=== PATIENT | female | born 1955 | race Caucasian/White ===

== ENCOUNTER 2017-07-24 11:43 | Inpatient (IN) | payer SELFPAY ==
[2017-07-24] MEDS ORDERED: NS 1,000 ML IV ONE ×2 (14:07→15:37)
--- NOTE | 2017-07-24 14:09 | EDPHY ---
H & P Stated Complaint: choly 3 wks ago/unable to eat/seen [facility] mrcp showed stricture at biliary du Time Seen by Provider: 07/24/17 13:31 HPI/ROS: CHIEF COMPLAINT: Persistent nausea HISTORY OF PRESENT ILLNESS: This is a 61-year-old female who underwent laparoscopic cholecystectomy at [facility] on June 29. Her surgeon was Dr. Joey Gardiner. She saw him in follow-up approximately 2 weeks later. During that postoperative time she had been experiencing bouts of extreme nausea with vomiting. Her nausea was not related to the type of food that she ate. This nausea and vomiting has continued and she is finding it difficult to adequately nourished herself. This past week, 5 nights ago, she was up all night (Thursday night) with nausea and vomiting. She spoke with her surgeon the following morning and was subsequently seen at [facility] Emergency Department where an MRCP was performed. She was told that this study was normal and was discharged from the emergency department. She saw her primary care physician, Dr. Juan Emanuel, 2 days ago. She was advised to revise her diet so that she was eating bland foods, increase her water intake, and was prescribed an antacid that she has not yet taken. Her symptoms have persisted. She spoke with her surgeon's office today and was told that the MRCP was not normal. As a result she presents to [facility] Emergency [facility] for further evaluation. She has been losing weight over the past month and has been unable to work regularly. She has not had fever. She has not seen blood in her vomitus. No constipation or diarrhea and no blood in her stool. No urinary complaints. REVIEW OF SYSTEMS: A ten point review of systems was performed and is negative with the exception of the items mentioned in the HPI. Past medical history: Hypertension Past surgical history: 1. Laparoscopic cholecystectomy 2. section 3. 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 She rarely drinks alcohol. She does not use tobacco products. No illicit drug use. General Appearance: Alert. Vital signs reviewed. Initial heart rate 120 with a blood pressure of 147/92. Temperature 36.6 degrees. Eyes: Pupils equal and round, no conjunctival injection, no discharge. Anicteric. ENT, Mouth: Mucous membranes are slightly dry, no oropharyngeal erythema or edema. Neck: No lymphadenopathy, supple. Respiratory: Lungs are clear to auscultation; no wheezes, rales, or rhonchi. Cardiovascular: Regular rate and rhythm; no murmur, rub, or gallop. Gastrointestinal: Abdomen is soft with mild tenderness in the right upper quadrant but no guarding or rebound, no masses or organomegaly, bowel sounds normal. Surgical incisions are healing well. Skin: Warm and dry, no rashes on exposed skin, normal color. Back: Nontender to palpation over the thoracolumbar spine. No CVAT. Extremities: No lower extremity edema, no calf tenderness or swelling. Neurological: Alert and oriented. Moving all four extremities easily and equally. Psychiatric: Normal affect. - Personal History Current Tetanus/Diphtheria Vaccine: Yes - Medical/Surgical History Hx Asthma: No Hx Chronic Respiratory Disease: No Hx Diabetes: No Hx Cardiac Disease: No Hx Renal Disease: No Hx Cirrhosis: No Hx Alcoholism: No Hx HIV/AIDS: No Hx Splenectomy or Spleen Trauma: No Other PMH: choly - Social History Smoking Status: Never smoked Constitutional: Initial Vital Signs Temperature (C) 36.6 C 07/24/17 11:58 Heart Rate 120 H 07/24/17 11:58 Respiratory Rate 20 07/24/17 11:58 Blood Pressure 147/92 H 07/24/17 11:58 O2 Sat (%) 96 07/24/17 11:58 O2 Delivery Mode Room Air Allergies/Adverse Reactions: No Known Allergies Allergy (Verified 07/24/17 11:57) Home Medications: Medication Instructions Recorded Lisinopril/Hctz 20/12.5MG 1 ea PO DAILY 07/24/17 [Zestoretic/Prinzide 20/12.5MG (*)] Omeprazole 40 mg PO DAILY 07/24/17 Promethazine HCl [Phenergan 25mg 25 mg PO Q6 PRN 07/24/17 (*)] Medical Decision Making ED Course/Re-evaluation: 61-year-old female 1 month status post laparoscopic cholecystectomy with persistent nausea and vomiting. She has been undergone MRCP. I was able to review the written report of this study. It shows a common bile duct measuring 12 mm, no choledocholithiasis or obstructing mass. I think that the size of this common bile duct is not unexpected postoperatively. There is noted to be a fairly abrupt transition distally near the ampulla. This is thought to possibly represent a short segment stricture. She received 2 L of normal saline intravenously in the emergency department. She was initially tachycardic but this resolved after the administration of IV fluids. She has been using Phenergan at home for nausea. She did not have vomiting while under my care. I reviewed her laboratory studies. Liver functions, with the exception of a bilirubin of 2 (unconjugated 1.6), are normal and her lipase is also normal. I do not suspect bowel obstruction in this setting. She has been having bowel movements. She is not febrile and does not have an elevated white blood cell count an infection seems unlikely. There is currently no evidence of retained stone. At the time of her cholecystectomy she presented with right upper quadrant pain and nausea and vomiting. I have not seen an intra operative note but I do have a report of an intraoperative cholangiogram which showed "opacification of the common bile duct, the common hepatic duct and the central biliary tree. Ducts appeared diffusely dilated. There is tapering and an apparent short segment narrowing of the distal common bile duct. No discrete filling defect. There is spillage of contrast into the duodenum. Narrowing of the distal common bile duct may account for the more proximal dilatation. Correlate clinically. ERCP me BP of benefit for further evaluation and possible treatment." I spoke with Dr. Mckinnon, gastroenterology. Dr. Lomax will see this patient tomorrow. I also spoke with Dr. Gardiner, her surgeon. He reports that there might be a stricture in the pancreatic head from chronic pancreatitis. He questions whether sphincterotomy and temporary bile duct stenting might be needed, but does not feel that there is a surgical need at this point. He agrees with gastroenterology consultation. She is being admitted for further evaluation and treatment as warranted. - Data Points Laboratory Results: Laboratory Results 07/24/17 14:21 07/24/17 14:21 Medications Given: Hydromorphone HCl (Dilaudid) 0.2 - 0.4 mg IVP Q4HRS PRN PRN Reason: Pain, Severe Unable to Take PO Stop: 08/03/17 16:05 Last Admin: 07/25/17 01:02 Dose: 0.4 mg Sodium Chloride (Ns) 1,000 mls @ 100 mls/hr IV CONT MATT Stop: 01/20/18 16:14 Last Admin: 07/25/17 07:02 Dose: 1,000 mls Ondansetron HCl (Zofran) 4 mg IVP Q4HRS PRN PRN Reason: Nausea/Vomiting, Can't Take PO Stop: 01/20/18 16:05 Last Admin: 07/25/17 01:03 Dose: 4 mg Pantoprazole Sodium (Protonix) 40 mg IVP BID MATT Stop: 01/20/18 23:14 Last Admin: 07/25/17 01:02 Dose: 40 mg Promethazine HCl (Phenergan) 6.25 - 12.5 mg IVP Q6HRS PRN PRN Reason: Nausea/Vomiting, Use 2nd Stop: 01/20/18 16:05 Last Admin: 07/24/17 21:40 Dose: 6.25 mg Discontinued Medications Heparin Sodium (Porcine) (Heparin Sodium) 5,000 unit SC ONCE ONE Stop: 07/24/17 16:09 Last Admin: 07/24/17 17:42 Dose: Not Given Heparin Sodium (Porcine) (Heparin Sc Injection) 5,000 unit SC ONCE ONE Stop: 07/24/17 17:01 Last Admin: 07/24/17 18:44 Dose: Not Given Sodium Chloride (Ns) 1,000 mls @ 0 mls/hr IV EDNOW ONE; Wide Open PRN Reason: Protocol Stop: 07/24/17 14:08 Last Admin: 07/24/17 14:20 Dose: 1,000 mls Sodium Chloride (Ns) 1,000 mls @ 0 mls/hr IV ONCE ONE PRN Reason: Wide Open Stop: 07/24/17 15:38 Last Admin: 07/24/17 15:42 Dose: 1,000 mls Departure - Departure Disposition: [facility] Inpatient Acute Clinical Impression: Abdominal pain Qualifiers: Abdominal location: right upper quadrant Qualified Code(s): R10.11 - Right upper quadrant pain Vomiting Qualifiers: Vomiting type: unspecified Vomiting Intractability: non-intractable Nausea presence: with nausea Qualified Code(s): R11.2 - Nausea with vomiting, unspecified Condition: Good
[2017-07-24 14:33] LABS: PLATELET COUNT 278 10^3/uL (150-400)
[2017-07-24] MEDS ORDERED: ACETAMINOPHEN 325 MG TAB PO PRN (16:06)
[2017-07-24] MEDS ORDERED: PROMETHAZINE HCL 25 MG/ML INJ IVP PRN (16:06)
[2017-07-24] MEDS ORDERED: ONDANSETRON DISINTEGRATING 4 MG TAB PO PRN (16:06)
[2017-07-24] MEDS ORDERED: HEPARIN 20,000 UNIT/ML VIAL SC ONE (16:08)
[2017-07-24] MEDS ORDERED: HEPARIN 5,000 UNIT/0.5 ML INJ SC ONE (17:00)
[2017-07-24] MEDS: ONDANSETRON 4 MG/2 ML VIAL IVP PRN (18:07)
[2017-07-24] MEDS: NS 1,000 ML IV SCH (20:10)
[2017-07-24] MEDS: HYDROmorphONE/DILAUDID 1 MG/ML INJ IVP PRN (20:30)
--- NOTE | 2017-07-24 22:49 | PDGENHP ---
History and Physical History and Physical: CC: Abdominal pain vomiting HISTORY: This patient had never had any abdominal symptoms or problems of concern until about 5 weeks ago when she started having right upper quadrant pain which she describes as severe and burning in nature associated with nausea vomiting. Eventually she was evaluated the [facility] in [place] where she was diagnosed with gallbladder disease and she went to the operating room. What she describes is having been found to have a single very large gallstone and a fairly sick sending gallbladder that was perhaps not intact, but no evidence of infection or sepsis per se. This surgery was done approximately 4 weeks ago. Since then the patient has had ongoing and worsening trouble with a lot of nausea vomiting and dry heaves, keeping very little down and losing a fair bit of weight. She does have some right upper quadrant pain but the more bothersom symptom is nause vomiting and inability to keep anything down. She eventually did follow up at the [facility] again where she had an MRI scan while she was in the ER, though she was not seen by her surgeon in follow-up. I reviewed the report from the scan which shows as expected some mild biliary ductal dilation however there is a question of a possible distal ductal narrowing though the radiologist did not some very committal about this finding. It sounds like the patient's surgeon was not recommending anything else specific be done and the patient had been discharged from the ER. She now comes to this hospital seeking further assessment and 2nd opinion essentially. She denies any specific fevers that she is aware of. She has had some bowel movements that are intermittently normal in loose since her surgery. There has been no blood in her emesis or coffee-ground type material. There are no respiratory or chest symptoms, no urinary symptoms, no joint or skin symptoms. The patient has no prior history of digestive illnesses. Her only abdominal issues have been a many years ago, and then and endometrial ablation procedure for some bleeding. She has no family history of any significant abdominal or digestive illnesses. She is not a significant drinker of alcohol. She does not have any type of chronic pain issues does not take any chronic pain medications. 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 Couple days ago she was given a prescriptions for some Prilosec but she has not started using that yet PHYSICAL EXAMINATION: Vital Signs: So far here she has had some mild intermittent hypertension when her pain or nausea or are uncontrolled, otherwise normal vitals no fever Phlebotomy Services Technician: Examination: General: This very pleasant woman especially considering all of her symptoms, who is alert, oriented, good mentation Skin: warm, dry, good color, no rash, no jaundice HEENT: normal Neck: no mass or jvd Resps: relaxed Lungs: clear breath sounds Heart: regular, no murmur Abdomen: soft, nondistended, with mild diffuse tenderness worst in the right upper quadrant, but no rebound or guarding, +BS, no mass Upper Extremities: normal Lower Extremities: no edema, warm No Bleeding or bruising Neurologic: normal speech/language, normal photograph retoucher, no focal weakness IV site: looks normal LABORATORY DATA: The main finding a CBC is a mildly elevated MCV at 102 associated with mildly low RBC count 3.97 but no abnormalities of hemoglobin or hematocrit On chemistry she has a normal lipase, normal liver enzyme, bilirubin slightly elevated at 2, otherwise unremarkable Chem panel RADIOLOGY STUDIES: No studies done here so far I did again review the report from her MRCP from earlier the this week in [place] with no definitive findings but a question of possible distal ductal narrowing ASSESSMENT: # PERSISTENT NAUSEA VOMITING AND ABDOMINAL PAIN 1 MONTH AFTER CHOLECYSTECTOMY * The cause of this is uncertain, however with all of her unremarkable laboratory data in the same symptoms still present that she had before surgery, I am wondering if the gallbladder was really the cause of her symptoms. Given her description of the size for stone and what sounded like an extremely friable the perhaps even disintegrating gallbladder, I would expected to have been symptomatic. Notably this description of the stone and the gallbladder are given to me directly from the patient and , I have not yet seen pathology report and have not spoken to the surgeon or seen a surgery note. It will help to review such information however. I would consider the possibility of ulcer disease or some other cause of these symptoms. Her examination is not very suggestive of an obstruction but would wonder about the possibility of a partial obstruction or gastric outlet obstruction. The MRI finding of a questionable distal biliary ductal obstruction should be reviewed if we can possibly get a disc from the other hospital. It did not sound very pronounced on the MR and with normal labs I would be somewhat surprised if this where the callus of her symptoms but again I am working with incomplete information here. # weight loss and dehydration due to above # macrocytosis with a slightly these red blood cell count * Broad differential diagnosis but at least as a starting point vitamin B12 should be checked PLANS: -inpatient admission for ongoing assessment and management of the above -IV hydration -pain and nausea medicines as needed -gastroenterology consultation is ordered -I will order abdominal x-rays to make sure there is nothing that looks like gastric or bowel obstruction; may need to consider CT of the abdomen or upper endoscopy for further assessment -will begin proton pump inhibitor therapy now in case this is peptic -check B12 level and disoriented over time if further assessment needed for her macrocytosis -I requested further records from the [facility] I have reviewed the patient's case in detail with Dr. Patience Best I have reviewed the patient's past medical records as part of this assessment, including radiologist report from her MRCP from the [facility] earlier this week
[2017-07-25] MEDS: HYDROmorphONE/DILAUDID 1 MG/ML INJ IVP PRN ×2 (01:02→08:05)
[2017-07-25] MEDS: PANTOPRAZOLE SODIUM 40 MG VIAL IVP SCH ×2 (01:02→08:05)
[2017-07-25] MEDS: ONDANSETRON 4 MG/2 ML VIAL IVP PRN (01:03)
--- NOTE | 2017-07-25 01:23 | PDMN ---
Medical Necessity Medical necessity: C/M review: Patient meets INPT criteria under MCG M-370 Vomiting, M-05 Abdominal pain, undiagnosed: Acute and persistent nausea, vomiting, abdominal pain for one month S/P cholecystectomy of unclear etiology, weight loss and dehydration due to above, total bilirubin 2.0, requiring planned GI consult, ongoing NPO, IV NS 100 ml//hr., frequent doses IV Dilaudid, IV Zofran, IV Phenergan, comorbid gallstone and laparoscopic cholecystectomy 4 weeks ago, subsequent ED visit at [facility] for symptoms above, MRI scan shows some mild expected biliary ductal dilation however there is a question of a possible distal ductal narrowing thought he radiologist did not seem very committal about this finding, it sounds like the patient's surgeon was not recommending anything else be done and patient had been discharged form that ER prior to this admission. MD anticipates > 2 MN LOS for ongoing med nec for eval and TX of above.
[2017-07-25] MEDS: NS 1,000 ML IV SCH (07:02)
[2017-07-25] MEDS ORDERED: LIDOCAINE 2% VISCOUS 15 ML UDCUP PO ONE (10:11)
[2017-07-25] MEDS ORDERED: HYOSCYAMINE SULFATE 0.125 MG TAB PO ONE (10:11)
[2017-07-25] MEDS ORDERED: MAG HYDROX/AL HYDROX/SIMETH 30 ML UDCUP PO ONE (10:11)
--- NOTE | 2017-07-25 10:50 | ASMTCMCOM ---
CM Note CM Note Notes: Spoke w/RN, pt suffers from chronic abd pain. 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 Anticipate pt will dc home w/support of when medically stable, no therapies ordered. DC Plan: Independent Date Signed: 07/25/2017 10:49 AM Electronically Signed By:Deirdre Glass RN
[2017-07-25 11:54] VITALS: BP 148/77
--- NOTE | 2017-07-25 14:02 | HOSPPROG ---
Hospitalist Progress Note Assessment/Plan: #Abdominal pain/nausea: unclear etiology. Choley 4 weeks ago. Localized to epigastrium, so consider ulcer, GERD. Improved with GI cocktail -AXR negative for obstruction. -appreciate GI consult. Rec PPI, hycosamine. Can FU outpatient if not improved -H pylori pending #HTN: controlled here Subjective: nausea mild this morning. Epigatric pain Objective: Vital Signs Temp Pulse Resp BP Pulse Ox 36.6 C 57 L 16 148/77 H 98 07/25/17 11:53 07/25/17 11:53 07/25/17 11:53 07/25/17 11:53 07/25/17 11:53 07/24/17 07/25/17 07/26/17 05:59 05:59 05:59 Intake Total 1999 Balance 1999 - Physical Exam Constitutional: no apparent distress Eyes: PERRL Ears, Nose, Mouth, Throat: moist mucous membranes Cardiovascular: regular rate and rhythym Respiratory: no respiratory distress Gastrointestinal: normoactive bowel sounds, tenderness (mild in epigastric region) Genitourinary: no bladder fullness Skin: warm Musculoskeletal: full muscle strength Neurologic: AAOx3 ICD10 Worksheet Patient Problems: Problems Problem Status Onset Abdominal pain Acute Vomiting Acute
[2017-07-25] MEDS ORDERED: HYOSCYAMINE SULFATE 0.125 MG TAB PO PRN (14:05)
--- NOTE | 2017-07-25 14:43 | GCON ---
[f rep st] CONSULTATION DATE OF CONSULTATION: 07/25/2017 REFERRING PHYSICIAN: MD Fawad CHIEF COMPLAINT: Nausea. HPI: I am asked to see this patient in consultation by Dr. Celestin for a chief complaint of nausea and vomiting. The patient is a 61-year-old, who underwent a cholecystectomy 4 weeks ago at an outside hospital. At that time, she was having issues with nausea, vomiting, and abdominal pain. After surgery, her nausea and vomiting persisted. She was seen in the emergency room there. An MRCP was done. Reports were no definitive stone. She was at home but had continued issues with nausea, vomiting, and poor p.o. intake. She has had some reflux symptoms only recently but no dysphagia. She has had no blood in her stools or melena. Initially did have some diarrhea. She does take occasional Motrin. No prior history of peptic ulcer disease. ALLERGIES: The patient has no reported allergies. MEDICATIONS: Include Tylenol, Dilaudid, Levsin, Zofran, Phenergan. Home medications were Phenergan, omeprazole, hydrochlorothiazide. PAST MEDICAL HISTORY: Notable for gallstone, laparoscopy for cholecystectomy 4 weeks ago, , endometrial ablation, hypertension. SOCIAL HISTORY: She is . Denies alcohol use. FAMILY HISTORY: Negative for colon cancer. REVIEW OF SYSTEMS: A complete review of systems is negative except for the pertinent positives and negatives noted above in the HPI. PHYSICAL EXAM: VITAL SIGNS: The patient is afebrile at 36.6. BP 148/77, pulse 97. CONSTITUTIONAL: She is alert and oriented. EYES: No scleral icterus. HENT: No oral lesions. CARDIOVASCULAR: Regular rhythm. CHEST: Clear to auscultation. ABDOMEN: Positive bowel sounds. Well-healed laparoscopic scar. Soft, nontender. SKIN: No rashes. LABORATORY DATA: LFTs are normal with the exception of mildly elevated bilirubin at 2.0, which is mostly unconjugated. Alkaline phosphatase normal. Lipase normal at 227. Hematocrit normal at 40. KUB shows no evidence of ileus or obstruction. ASSESSMENT: Persistent nausea and vomiting with recent cholecystectomy, although the patient did have some nausea and vomiting prior to her surgery as well. Of note, patient received a gastrointestinal cocktail while here in the hospital, along with some hyoscyamine and has had significant improvement in her symptoms, the best that she has felt in weeks. This may suggest that she has gastritis or potentially peptic ulcer disease; however, she has no red flag symptoms that would warrant urgent upper endoscopy. At this point, I would recommend conservative measures and to treat her gastritis with at least 8 weeks of proton pump inhibitor, to use hyoscyamine as needed, and to avoid nonsteroidal anti-inflammatory drugs. PLAN: 1. Treatment as above. 2. If the patient's symptoms do not continue to improve, she is to contact our office, and we can arrange for an outpatient upper endoscopy. Okay to discharge from gastrointestinal standpoint. 3. Check h. pylori serology. Thank you for this consult. /[id number]/MODL MTDD
--- NOTE | 2017-07-25 19:33 | GDS ---
[f rep st] DISCHARGE SUMMARY DISCHARGE DIAGNOSES: 1. Abdominal pain, suspected peptic ulcer disease versus gastritis. 2. Recent cholecystectomy. 3. Hypertension. HISTORY OF PRESENT ILLNESS: A 61-year-old female with history of hypertension, recently hospitalized for a cholecystectomy. This was done 4 weeks ago and since that time, she has had ongoing progressive nausea and epigastric pain. She has been able to keep very little down and has lost weight. She has mild right upper quadrant pain, but she is more concerned with her nausea. Denies any fevers, chills, or sweats. No bloody stools or emesis. HOSPITAL COURSE BY PROBLEM: 1. Acute abdominal pain: suspect PUD vs gastritis .Improved with GI cocktail. H pylori was negative. X-ray did not show any evidence of obstruction or ileus. No flag signs. Was evaluated by Dr. Richmond with GI who recommends PPI x 8 weeks.Try hycosamine and carafate. If symptoms not improved, provided number for GI follow up. 2. Hypertension. Resume home medications. DISPOSITION: Patient is stable for discharge. NEW MEDICATIONS: Hyoscyamine, Carafate. Continue proton pump inhibitor. She should avoid NSAIDs. FOLLOW UP: 1. Primary care physician. 2. Follow up with Dr. Richmond if abdominal symptoms not improved. /[id number]/MODL MTDD
== END 2017-07-25 15:35 | disposition home or self-care (01) | DRG 384 ==
LOC: OBSVTOIN 16:07 → F3E 17:53
PROVIDERS: ADMIT Internal Medicine; ATTEND Internal Medicine
DX: K27.9 Peptic ulcer, site unspecified, unspecified as acute or chronic, without hemorrhage or perforation (principal); K29.70 Gastritis, unspecified, without bleeding; E86.0 Dehydration; I10 Essential (primary) hypertension; R63.4 Abnormal weight loss; Z98.890 Other specified postprocedural states
CPT/HCPCS: J1170; J1644; J2405; J2550

== ENCOUNTER 2017-09-28 16:02 | Inpatient (IN) | payer OTHER ==
--- NOTE | 2017-09-28 16:11 | EDPHY ---
H & P Stated Complaint: dizzyness/abnormal ekg not eating hypotensive Time Seen by Provider: 09/28/17 16:11 HPI/ROS: CHIEF COMPLAINT: Nausea, vomiting, abdominal pain, dizziness HISTORY OF PRESENT ILLNESS: The patient is referred to the ED by her primary care provider for evaluation of multiple complaints. The patient has had a longstanding history of intermittent abdominal pain, nausea and vomiting. This was initially thought to be secondary to cholelithiasis and the patient did undergo cholecystectomy. She developed ongoing symptoms and was hospitalized and treated presumptively for peptic ulcer disease. She continues to be on a proton pump inhibitor for this condition. The patient reported she had some improvement of her symptoms since the end of June however on of last week developed recurrent symptoms of dyspepsia, dizziness and dyspnea. The patient was seen in her primary care provider's office and reportedly was hypotensive. She was referred to the ED for further evaluation. The patient endorses no symptoms of chest pain. She denies any asymmetric calf pain or swelling. The patient is on lisinopril for hypertension. She has no history of coronary artery disease. REVIEW OF SYSTEMS: A comprehensive 10 point review of systems is otherwise negative aside from elements mentioned in the history of present illness. Source: Patient Exam Limitations: No limitations - Personal History Current Tetanus Diphtheria and Acellular Pertussis (TDAP): Yes - Medical/Surgical History Hx Asthma: No Hx Chronic Respiratory Disease: No Hx Diabetes: No Hx Cardiac Disease: No Hx Renal Disease: No Hx Cirrhosis: No Hx Alcoholism: No Hx HIV/AIDS: No Hx Splenectomy or Spleen Trauma: No Other PMH: Hypertension, cholecystectomy - Social History Smoking Status: Never smoked - Physical Exam Exam: General Appearance: Alert, no distress Eyes: Pupils equal and round no pallor or injection ENT, Mouth: Mucous membranes moist Respiratory: There are no retractions, lungs are clear to auscultation Cardiovascular: Regular rate and rhythm Gastrointestinal: Abdomen is soft and nontender, no masses, bowel sounds normal Neurological: A&O, normal motor function, normal sensory exam, normal cranial nerves Skin: Warm and dry, no rashes Musculoskeletal: Neck is supple nontender Extremities: symmetrical, full range of motion Psychiatric: Patient is oriented X 3, there is no agitation Constitutional: Initial Vital Signs Temperature (C) 36.5 C 09/28/17 16:05 Heart Rate 90 07/30/18 16:05 Respiratory Rate 17 09/28/17 16:05 Blood Pressure 99/73 L 09/28/17 16:05 O2 Sat (%) 96 09/28/17 16:05 O2 Delivery Mode Room Air Allergies/Adverse Reactions: No Known Allergies Allergy (Verified 09/28/17 16:04) Home Medications: Medication Instructions Recorded Lisinopril/Hctz 20/12.5MG 1 ea PO DAILY 07/24/17 [Zestoretic/Prinzide 20/12.5MG (*)] Omeprazole 40 mg PO DAILY 07/24/17 Promethazine HCl [Phenergan 25mg 25 mg PO Q6 PRN 07/24/17 (*)] Hyoscyamine Sulfate [Levsin, 0.125 mg PO Q6HRS PRN #30 tab 07/25/17 Hyomax-Sl 0.125 mg (*)] Sucralfate [Carafate 1 GM (*)] 1 gm PO ACHS #120 tab 07/25/17 Medical Decision Making - Diagnostics EKG Interpretation: EKG: Complete interpretation has been separately recorded in the [employer] archive. Summary impression: Sinus rhythm, rate 80 ED Course/Re-evaluation: Review of laboratory studies from earlier today. CBC demonstrates a leukocytosis with a white blood cell count of 13.4. Serum chemistries demonstrate a sodium of 129, a potassium of 3 and a creatinine of 1.5. Patient has a negative D-dimer. She does have an elevated troponin of 0.164. The patient presents the ED for evaluation of intermittent abdominal pain, nausea and dyspepsia. The patient is noted to have hyponatremia, hypokalemia and indeterminately elevated troponin. The patient's EKG demonstrates no evidence of ischemia. The patient does have hyponatremia and mild hypokalemia. She had an IV established. Clinically she does appear dehydrated. She received a L of normal saline. Given the patient's indeterminately elevated troponin and ongoing GI symptoms I do feel she should be admitted to the hospital for further evaluation and management. Consultation was made with Dr. Chan Prince from the hospitalist service. Differential Diagnosis: Differential diagnosis considered includes peptic ulcer disease, acute coronary syndrome, pancreatitis, choledocholithiasis, dehydration, metabolic abnormality - Data Points Laboratory Results: 09/28/17 16:20 POC Troponin I 0.15 ng/mL H ng/mL (0.00-0.08) Point of Care Test Results: Chemistry 09/28/17 16:20 POC Troponin I 0.15 ng/mL H ng/mL (0.00-0.08) Departure - Departure Disposition: [facility] Inpatient Acute Clinical Impression: Elevated troponin, Hyponatremia, Epigastric pain Condition: Good Referrals: Juan Emanuel MD [Primary Care Provider] - As per Instructions
--- NOTE | 2017-09-28 17:19 | CPEKG ---
Heart Rate: 86 RR Interval: 698 P-R Interval: 101 QRSD Interval: 178 QT Interval: 468 QTC Interval: 560 P [place]: 47 QRS [place]: 42 T Wave [place]: 64 EKG Severity - ABNORMAL ECG - EKG Impression: SINUS RHYTHM EKG Impression: RUN OF VENTRICULAR PREMATURE COMPLEXES EKG Impression: ABERRANT COMPLEX, POSSIBLY SUPRAVENTRICULAR EKG Impression: SHORT [place] INTERVAL, ACCELERATED AV CONDUCTION EKG Impression: RIGHT ATRIAL ABNORMALITY EKG Impression: NONSPECIFIC INTRAVENTRICULAR CONDUCTION DELAY Electronically Signed By: Watson Booker 28-Sep-2017 17:23:16
[2017-09-28] MEDS ORDERED: ACETAMINOPHEN 325 MG TAB PO PRN (19:24)
[2017-09-28] MEDS ORDERED: oxyCODONE IR 5 MG TAB PO PRN (19:24)
[2017-09-28] MEDS ORDERED: ONDANSETRON 4 MG/2 ML VIAL IVP PRN (19:24)
[2017-09-28] MEDS ORDERED: ONDANSETRON DISINTEGRATING 4 MG TAB PO PRN (19:24)
[2017-09-28] MEDS ORDERED: LR 1,000 ML IV SCH (19:30)
[2017-09-28] MEDS ORDERED: ENOXAPARIN 40 MG/0.4 ML SYR SC SCH (21:00)
[2017-09-28] MEDS: POTASSIUM CL 20 MEQ/15 ML UDCUP PO SCH (21:20)
[2017-09-28] MEDS ORDERED: HYOSCYAMINE SULFATE 0.125 MG TAB SL PRN (21:47)
[2017-09-28] MEDS ORDERED: LORazepam 0.5 MG TAB PO PRN (22:52)
--- NOTE | 2017-09-29 00:06 | GHP ---
[f rep st] HISTORY AND PHYSICAL DATE OF ADMISSION: 09/28/2017 CHIEF COMPLAINT: Lightheadedness and shortness of breath and ongoing abdominal symptoms. HISTORY OF PRESENT ILLNESS: The patient is a pleasant 61-year-old female with a past medical history of hypertension, who has been having ongoing abdominal complaints, who has felt earlier in the year that her symptoms may in fact have been related to cholelithiasis and she subsequently had a cholecys tectomy performed. Unfortunately, she continued to have abdominal symptoms. GI consultation was rose isaacs on a recent admission to the hospital. It was felt that her symptoms may potentially be secondary to peptic ulcer disease and she was started on a proton pump inhibitor as well as hyoscyamine. She f elt like these medications did help her abdominal symptoms, especially initially, but has had some re current symptoms of recent. Today she was seen by Dr. Emanuel in the office and was noted to be hy potensive with systolic blood pressure of 80. She had been complaining of feeling lightheadedness as well over the prior weeks with some lightheadedness and during a recent dental visit. No syncopal e pisodes have occurred. She states with her abdominal issues over the past year she has lost approxim ately 30 pounds. Of note, on her emergency room evaluation is that her troponin was mildly elevated at 0.15. She denies any chest pains, but did sense that she was intermittently short of breath. I r eviewed the case with Dr. Erickson Alfaro's and discussed the possibility that possibly some of her recent symptoms could be of cardiac origin. PAST MEDICAL HISTORY: 1. Hypertension. 2. Herpes zoster. PAST SURGICAL HISTORY: Cholecystectomy. MEDICATIONS: 1. Lisinopril/hydrochlorothiazide. 2. Omeprazole. 3. Hyoscyamine. ALLERGIES: No known drug allergies. FAMILY HISTORY: There is heart disease on her father's side of the family. SOCIAL HISTORY: The patient is currently . She is a nonsmoker. 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 She is a Full Code status. REVIEW OF SYSTEMS: CONSTITUTIONAL: No complaints of any fevers or chills. ENT: No recent upper re spiratory illnesses. CARDIOVASCULAR: No complaints of any syncopal episodes, chest pains or palpita tions. RESPIRATORY: Positive for subjective shortness of breath. No pleuritic-type chest pains. G I: No nausea or vomiting today. No bloody stools. No black stools. : No report of any difficul ty with urination. NEUROLOGIC: No complaints of headaches or focal weakness. HEMATOLOGIC: No hist ory of any deep vein thrombosis or pulmonary embolism. PSYCHIATRIC: No history of anxiety. ENDOCRI NE: No polyuria or heat intolerance. SKIN: No new skin rashes. MUSCULOSKELETAL: No focal joint p ains. PHYSICAL EXAM: VITAL SIGNS: Temperature 36.5, blood pressure 99/73, heart rate 90, respirations 17, satting 96% on room air. GENERAL: Patient is resting comfortably. She is arousable, awake, alert, conversant, oriented, no acute distress. HEENT: Extraocular movements intact. Pupils equal. No s cleral icterus. NECK: Supple. No thyroid enlargement is noted. CHEST: Clear to auscultation with normal respiratory effort. HEART: Regular rate and rhythm. No murmurs are noted. ABDOMEN: Soft, nontender, nondistended. : No Matthews catheter in place. EXTREMITIES: No significant edema. MUS CULOSKELETAL: No calf pain with palpation. NEUROLOGIC: Cranial nerves 2 through 12 appear grossly intact with 5 out of 5 strength in extremities. LABS: White blood cell count 13, hemoglobin 16, platelets 289. Sodium is 129, potassium 3.0, chlori de 87, bicarb 24, BUN 31, creatinine 1.5, glucose of 83. D-dimer was within normal limits at 0.30. AST 44, ALT 41, alkaline phosphatase 51, bilirubin 1.2. ASSESSMENT/PLAN: 1. Acute kidney injury, suspecting a prerenal etiology. It may be secondary to hypotension as I kahlil castaneda her blood pressures have decreased with amount of weight loss she has incurred over the past 6 t o 12 months and she has been compliant with taking lisinopril/hydrochlorothiazide on a daily basis. At this point in time I recommend that we hold lisinopril/hydrochlorothiazide indefinitely. IV fluid s overnight and recheck creatinine in the morning. If not improving, consider renal ultrasound for f urther assessment. Otherwise, we will also check a urinalysis. 2. Hyponatremia, likely combination of hypovolemia as well as concurrent hydrochlorothiazide use. 3. Hypokalemia, potentially related to low oral intake as well. I have recommended potassium chlori de 40 mEq twice a day for now to help replete her potassium level. 4. Leukocytosis, possibly stress related. No definite signs or source of infection currently. Will trend overnight. Monitor closely for any fevers. 5. Hypotension--as above. Suspect related to ongoing antihypertensive use in the setting of signifi cant weight loss. 6. Peptic ulcer disease--possible. I recommend that we continue with her proton pump inhibitor as w ell as hyoscyamine as needed, which she says has been helpful for her. It sounds like there was some consideration to doing an outpatient endoscopy and I did encourage her to keep with this plan. Righ t now considering the hypotension, electrolyte abnormalities, I would recommend that we hold off for the time being and let these issues stabilize before pursuing endoscopy. 7. Elevated troponin, possibly secondary to mildly elevated creatinine. No definite chest pain, but she has had some shortness of breath. I have ordered an echocardiogram for tomorrow morning for fur ther assessment. We will trend these overnight as well. At the current time, though they appear to be trending downward. No obvious concerning findings on her EKG. I will hold off on ordering cardia c stress testing at the current time until we can get a sense of what her blood pressures do with IV fluids, but if these normalize, she may be able to tolerate an exercise treadmill test. 8. Deep venous thrombosis prophylaxis--patient declined use of Lovenox. I initially prescribed it a t therapeutic doses in light of the troponin elevation, but the patient declined its use. I think sh shital is relatively low risk as she has been ambulatory and we will go ahead and stop at this time. DISPOSITION: I will admit her under inpatient status as I anticipating it will take 2 to 3 days to n ormalize her acute kidney injury as well as her electrolytes. /[id number]/MODL
[2017-09-29 04:45] LABS: PLATELET COUNT 233 10^3/uL (150-400)
--- NOTE | 2017-09-29 09:03 | CPEKG ---
Heart Rate: 60 RR Interval: 1000 P-R Interval: 136 QRSD Interval: 74 QT Interval: 424 QTC Interval: 424 P [place]: 73 QRS [place]: 53 T Wave [place]: 68 EKG Severity - ABNORMAL ECG - EKG Impression: SINUS RHYTHM EKG Impression: PROBABLE LEFT ATRIAL ABNORMALITY EKG Impression: NONDIAGNOSTIC ST ELEVATION, CANNOT RULE OUT ISCHEMIA Electronically Signed By: Madyson Del Real 29-Sep-2017 12:00:04
[2017-09-29] MEDS: LR 1,000 ML IV SCH ×2 (09:07→22:33)
[2017-09-29] MEDS: PANTOPRAZOLE SODIUM 40 MG TAB PO SCH (09:43)
--- NOTE | 2017-09-29 09:52 | ECHO ---
[email or web address] [address] [address] Main: [phone] Fax: [email or web address] Echocardiogram Name: PHIL GODINEZ MR#: [id number] Study Date: 09/29/2017 Study Time: 08:04 AM Date of : 1955 Age: 61 year(s) Height: 157.5 cm (62 in.) Weight: 44 kg (97 lb.) BSA: 1.41 m2 Gender: Female Examination: Echo Indication: Elevated troponin/hypotensive/ History HTN Image Quality: Contrast: Requested by: Chan Prince BP: 100 mmHg/65 mmHg Heart Rate: Rhythm: Indication: Elevated troponin/hypotensive/ History HTN Procedure Staff Manager Hydraulic: Radha Roblero RDCS Reading Physician: Radha Foreman MD Requesting Provider: Conclusions: Normal size left ventricle. No LV hypertrophy. The ejection fraction is estimated to be 70-75 %. No regional wall motion abnormality. Normal size right ventricle. Normal RV function. Trivial to mild tricuspid valve regurgitation. No prior echo Measurements: Chambers Valvular Assessment AV/MV Valvular Assessment TV/PV Normal Normal Normal Name Value Range Name Value Range Name Value Range Ao April (2D): 2.9 cm (1.4 cm-2.6 AV Vmax: 1.23 m/s (1 m/s-1.7 TR Vmax: 1.67 mm/s ( - ) cm) m/s) TR PGmax: 11 mmHg ( - ) IVSd (2D): 0.5 cm (0.6 cm-1.1 AV maxP mmHg ( - ) syst. PAP: 16 mmHg ( - ) cm) AV meanP mmHg ( - ) LVDd (2D): 3.7 cm (3.9 cm-5.3 MV E Vmax: 0.71 m/s ( - ) cm) MV A Vmax: 0.86 m/s ( - ) LVDs (2D): 2.3 cm (2.1 cm-4 MV E/A: 0.83 ( - ) cm) LVPWd (2D): 0.7 cm ( - ) LVEF (MOD4): 71 % (>=55 %) EF Range: 70-75 % Continued Measurements: Chambers Valvular Assessment AV/MV Valvular Assessment TV/PV Name Value Name Value Name Value Patient: PHIL GODINEZ Study Date: 09/29/2017 Page 1 of 2 08:04 AM LADs: 2.3 cm MV E/E' Septal: 11.90 CVP (est.): 5 mmHg LADs Lon.9 cm MV E/E' Lateral: 10.90 LA Area: 9.5 cm2 Findings: Left Ventricle: Normal size left ventricle. No LV hypertrophy. Global hypercontractility of the left ventricle. The ejection fraction is estimated to be 70-75 %. No regional wall motion abnormality. Normal diastolic LV function. Right Ventricle: Normal size right ventricle. Normal RV function. Left Atrium: The left atrium is normal in size. Right Atrium: The right atrium is normal in size. Mitral Valve: The mitral valve is normal in appearance and function. Aortic Valve: The aortic valve is normal in appearance and function. Tricuspid Valve: The tricuspid valve is normal in appearance and function. Trivial to mild tricuspid valve regurgitation. Pulmonic Valve: Pulmonary valve not well visualized. Aorta: The aorta is normal. Pericardium: Trivial anterior pericardial effusion. (No Signature Object) Patient: PHIL GODINEZ Study Date: 09/29/2017 Page 2 of 2 08:04 AM [id number]
--- NOTE | 2017-09-29 10:36 | ASMTCMCOM ---
CM Note CM Note Notes: Chart reviewed. 61 year old female admitted via ED for c/o abdominal pain was found to have an elevated troponin. No needs anticipated at this time. CM available should needs arise. Plan: Likely home independently when medically cleared for discharge. Date Signed: 09/29/2017 10:28 AM Electronically Signed By:Ida Hernandez RN
--- NOTE | 2017-09-29 12:40 | PDMN ---
Medical Necessity Medical necessity: [facility] M326 Renal Failure, Acute, 3 days. 61 y/o w/ acute kidney injury, hyponatremia, hypokalemia, hypotension, elevated troponin w/ some SOB, stress test pending. IV fluids needed. Admitting to inpt status anticipating it will take 2-3 days to normalize acute kidney injury and electrolytes.
[2017-09-29] MEDS: POTASSIUM CL 20 MEQ/15 ML UDCUP PO SCH (13:10)
--- NOTE | 2017-09-29 15:17 | CPR ---
[f rep st] NONINVASIVE CARDIAC PROCEDURE REPORT PROCEDURE: Exercise treadmill test SUPERVISING FARM ASSISTANT: Dr. Radha Foreman INDICATION FOR PROCEDURE: Initial indeterminate troponin level on admission, abnormal electrocardiog philip. PRE: After obtaining informed consent, patient was placed on electrocardiogram. Initial EKG shows s inus rhythm, normal axis, nonspecific T-wave abnormalities. Patient denies any chest pain, shortness of breath, or symptoms suggesting of ischemia. Initial blood pressure 98/60, SpO2 of 97% on room ai r. STRESS: The patient was placed on exercise treadmill, following standard Nadeem protocol with the olimpia lujan findings: 1. Patient exercised for 6 minutes. 2. 7.1 METS. 3. Heart rate of 171 beats per minute was obtained, which was 106% of MPHR. 4. Patient had no chest pain or symptoms suggesting of ischemia through testing. 5. No significant ST shifts at peak exercise suggesting of ischemia. 6. BP response 98/60 at rest, peak 134/80. 7. No arrhythmias noted during rest, stress, or recovery. 8. SpO2 greater than 90% throughout testing. 9. Testing was stopped due to maximum effort. 10. Ruvalcaba treadmill score of 6, placing patient at low cardiovascular risk. RECOVERY: Patient recovered for 5 minutes with heart rate and blood pressure. [facility]. She remained asymptomatic. No arrhythmias. IMPRESSION: 61-year-old female being evaluated for cardiac ischemia, exercise treadmill testing show ing no significant ST shifts at peak exercise suggesting of ischemia. No arrhythmias. Normal blood pressure response. The patient's vital signs are stable. Ruvalcaba treadmill score of 6 placing her at l ow cardiovascular risk. The patient will be taken down to nuclear imaging for post-stress imaging to be done. /[id number]/MODL
--- NOTE | 2017-09-29 15:39 | HOSPPROG ---
Hospitalist Progress Note Assessment/Plan: 61yo F relatively healthy F admitted from PCP office for hypotension in setting of nausea, vomiting found to have ROBIN, electrolyte disturbances and elevated troponin. #Elevated troponin: Peaked 0.164, no ischemic ECG changes and no overt chest pain. TTE without RMWA and normal LVEF. I suspect this is driven by hypotension/ dehydration in setting of renal insufficiency. Given that her GI symptoms could be anginal equivalent, will pursue stress testing with MPI. Monitor on telemetry. #Nausea/emesis: Acute on chronic but improving this morning. This has lead to 25 # weight loss (over 20% of pt's weight). Had CT at outside facility several months ago and per patient report, no masses. Symptoms did not jesusita after cholecystectomy, treatment of H pylori, or with PPI. As above, ruling out coronary disease. Will also get upper GI series. If negative, plan to pursue CT abd/pelvis once renal function improves. She does occasionally get vertigo, but I have a low suspicion that dizziness is driving her GI symptoms. We will provide IV anti-emetics. #Hypotension: Improved, no e/o hypoperfusion. Related to ongoing anti- hypertensive use in setting of poor PO and weight loss. IVF, monitor. #ROBIN: Improving, Cr 1.5->1.0 which still isn't normal given her size. Suspect prerenal, getting additional IVF today. Avoid nephrotoxins. #Hyponatremia: Suspect GI losses as improving with IVF. Monitor and recheck BMP in AM. VTE ppx: low risk, SCDs Diet: regular, NPO at midnight for GI series Code: FCFT Disposition: remain inpatient for further evaluation of elevated troponin with stress test and management of vomiting/hypotension with IV anti-emetics and IVF. Subjective: Symptomatically feeling much better this morning. Wondering why she keeps having this nausea. Denies fevers, chills, chest pain. Objective: Vital Signs Temp Pulse Resp BP Pulse Ox 36.7 C 87 14 107/67 98 09/29/17 11:32 09/29/17 11:32 09/29/17 11:32 09/29/17 11:32 09/29/17 11:32 Laboratory Results 09/29/17 03:56 09/29/17 03:56 09/28/17 09/29/17 09/30/17 05:59 05:59 05:59 Intake Total 400 1000 Balance 400 1000 - Physical Exam Constitutional: no apparent distress, appears nourished, not in pain, other ( very thin) Eyes: PERRL, anicteric sclera, EOMI Ears, Nose, Mouth, Throat: moist mucous membranes, hearing normal, ears appear normal, no oral mucosal ulcers Cardiovascular: regular rate and rhythym, no murmur, rub, or gallop, No JVD, No edema Respiratory: no respiratory distress, no rales or rhonchi, clear to auscultation Gastrointestinal: normoactive bowel sounds, soft, non-tender abdomen, no palpable masses, tenderness (mild epigastric tenderness) Skin: no rashes or abrasions, no fluctuance, no induration Musculoskeletal: full muscle strength, no muscle tenderness, normal joint ROM Neurologic: AAOx3, sensation intact bilaterally Psychiatric: interacting appropriately, not anxious, not encephalopathic, thought process linear ICD10 Worksheet Patient Problems: Problems Problem Status Onset Elevated troponin Acute Epigastric pain Acute Hyponatremia Acute Abdominal pain Acute Vomiting Acute
[2017-09-29] MEDS: traZODone 50 MG TAB PO SCH (22:33)
[2017-09-30] MEDS: PANTOPRAZOLE SODIUM 40 MG TAB PO SCH (08:10)
[2017-09-30] MEDS: LR 1,000 ML IV SCH ×2 (09:18→19:12)
--- NOTE | 2017-09-30 10:14 | CPEKG ---
Heart Rate: 53 RR Interval: 1132 P-R Interval: 140 QRSD Interval: 72 QT Interval: 416 QTC Interval: 391 P [place]: 73 QRS [place]: 41 T Wave [place]: 68 EKG Severity - ABNORMAL ECG - EKG Impression: SINUS RHYTHM EKG Impression: LOW VOLTAGE IN FRONTAL LEADS EKG Impression: ABNORMAL T, CONSIDER ISCHEMIA, ANT-LAT LEADS Electronically Signed By: Madyson Del Real 30-Sep-2017 16:17:34
[2017-09-30] MEDS ORDERED: NITROGLYCERIN 0.4 MG BTL SL PRN (11:21)
[2017-09-30] MEDS ORDERED: TEMAZEPAM 15 MG CAP PO PRN (11:21)
[2017-09-30] MEDS ORDERED: diphenhydrAMINE 25 MG CAP PO ONE (11:21)
[2017-09-30] MEDS ORDERED: ASPIRIN EC 325 MG TAB PO ONE (11:21)
[2017-09-30] MEDS ORDERED: DIAZEPAM 5 MG TAB PO ONE (11:21)
[2017-09-30] MEDS ORDERED: FAMOTIDINE 20 MG TAB PO ONE (11:21)
[2017-09-30] MEDS ORDERED: LIDOCAINE 1% 300 MG/30 ML SDV ONE (11:27)
[2017-09-30] MEDS ORDERED: IOPAMIDOL (ISOVUE-370) 150 ML BTL IV ONE (11:27)
[2017-09-30] MEDS ORDERED: MIDAZOLAM 2 MG/2 ML VIAL ONE (11:30)
[2017-09-30] MEDS ORDERED: NS 1,000 ML IV SCH (11:30)
[2017-09-30] MEDS ORDERED: fentaNYL 100 MCG/2 ML INJ ONE (11:30)
[2017-09-30] MEDS ORDERED: MAGNESIUM SULF 2 GM/WATER 50 ML IV ONE (11:39)
[2017-09-30] MEDS ORDERED: CLOPIDOGREL BISULFATE 75 MG TAB ONE ×2 (11:55→11:56)
--- NOTE | 2017-09-30 11:58 | PDHPUP ---
History & Physical Update H&P update statement: This history and physical update is based on an assessment of the patient which was completed after admission or registration (within 24 hours), but prior to the surgery/procedure. H&P update: H&P reviewed & patient examined, no change in patient's condition since H&P completed
--- NOTE | 2017-09-30 11:58 | PDPROPOC ---
Sedation Plan of Care Sedation Plan of Care: mental status noted, patient educated of risks, benefits , alternatives, patient can tolerate sedation ASA Classification: ASA 2 Planned drugs: fentanyl, midazolam Mallampati Score: Class 2 Mallampati Reference Image: Patient passed 3-3-2 rule?: Yes
--- NOTE | 2017-09-30 12:15 | ASMTCMCOM ---
CM Note CM Note Notes: 09/30/2017 Case Management Note Met w/pt during rounds this morning. Pt to have cardiac cath today as well as upper GI study. Case Management anticipating independent discharge but will re eval after pt recovers from procedures today. Case Management d/c poc: to be determined Case Management to follow. Date Signed: 09/30/2017 12:15 PM Electronically Signed By:Jess Marie RN
--- NOTE | 2017-09-30 12:41 | GCON ---
[f rep st] CONSULTATION CARDIOLOGY CONSULTATION REFERRING PHYSICIAN: Jeevan Mckeon MD INDICATION FOR CARDIOLOGY CONSULTATION: Abnormal electrocardiogram, abnormal MPI study, ongoing fati sedrick symptoms with some shortness of breath. Noted on admission, mildly elevated troponin level. HISTORY OF PRESENT ILLNESS: The patient is a 61-year-old female with reported significant past histo ry of hypertension, previous smoker, and family history of coronary artery disease at early onset, re porting father had 1st OH before in his 50s. The patient reports she has been having for the last 2 weeks episodes of nausea. She has been seen by her PCP. She felt she had initially been tried on pr oton pump inhibitors. She reports that this had somewhat improved, until last , and then she had noted significant dizziness and weakness with nausea and vomiting. Requiring her to stay home f or multiple days, reporting on Thursday, feeling significantly worse with shortness of breath. Thursday morning, she did get in to see her PCP, Dr. Emanuel, in which he performed electrocardiogram on her , in which she was noted to be tachycardic and hypotensive. She was referred to [facility] Emergency Department on that day for further evaluation. Upon arrival, initial electrocardiogra m was done, showing sinus rhythm with no acute ST or T-wave abnormalities. Laboratory studies were d one initially on admission, with troponin level being mildly elevated at 0.126, but she reported no h istory of chest pain or pressure. Thinking that troponin level was possibly due to ongoing nausea, v omiting, dehydration, and hypotension, she was placed on telemetry and monitored, where she was also given IV fluid. Her troponin levels did trend downward, and by yesterday, September 29, she did have tr oponin levels that were at 0.044. She did undergo an echocardiogram on the morning of the , ic h showed no regional wall motion abnormalities with normal LVEF. At that point, she was did undergo exercise MPI study, in which she did not have any significant EKG changes on exercise treadmill testi . MPI study done did note normal LVEF, with inferior, lateral and septal hypoperfusion, which coul d have been related to infarct, without evidence of ischemia or focal wall motion abnormalities. She remained asymptomatic of any chest pain or pressure throughout her hospitalization, and does report her nausea and vomiting has improved. She reports no significant shortness of breath. This morning, repeated electrocardiogram did show worsening with new worsening biphasic T-waves in V1 and V2, with inverted T-waves in V4 through V6. At that point, we were asked for a consultation on the patient. Patient informs me besides ongoing nausea and vomiting, she reports no recent fevers or chills. She denies of any palpitations, orthopnea, PND, edema. She does report some lightheadedness with some n ear syncope, reporting no palpitations during those events over the last days prior to admission. De nies any symptoms suggestive of TIA or CVA. She does admit on Thursday and Thursday, prior to her admiss ion, she did have significant shortness of breath. Her cardiac risk factors, as mentioned above, are hypertension, previous smoker, and family history of coronary artery disease. PAST MEDICAL HISTORY: Include hypertension, herpes zoster, and potential GERD. PAST SURGICAL HISTORY: Includes: Cholecystectomy, in which she underwent in June of this year. HOME MEDICATIONS: Include: Lisinopril-hydrochlorothiazide 20-12.5, 1 tablet p.o. daily; omeprazole 40 mg p.o. daily; Phenergan 25 mg p.o. q.6 hours p.r.n.; Levsin 0.125 mg sublingual q.6 hours p.r.n. ALLERGIES: Patient has no known drug allergies. FAMILY HISTORY: As mentioned above. Patient reports father had multiple cardiac issues with 1st OH in his 50s, passing away in his 70s from an OH. SOCIAL HISTORY: She is . 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 She is a previous smoker quitting 20 years ago. She denies any illicit drug use. She has 2 on license of [facility] t children. REVIEW OF SYSTEMS: A 10-point review of systems done on this patient, all negative, except as mentio wilbur above. PHYSICAL EXAMINATION: GENERAL: Thin, well-groomed, female. She is alert and oriented to person, place, time, situation. Currently appears to be under no acute distress. VITAL SIGNS: [facility] vital signs are blood pressure of 97/65, heart rate of 66. Respirations are 12. Saturating 96% o n room air. Temperature of 36.6 degrees Celsius. HEENT: Head is normocephalic. Lips and tongue ar e pink and moist with no signs of cyanosis. Conjunctivae pink. NECK: Trachea is midline, +2 caroti d pulses bilateral. No auscultated bruits, no jugular vein distention. RESPIRATORY: Lungs are eric r to auscultation. No rhonchi, rales, or wheezes. No accessory muscle use. No intercostal muscle r etraction noted. CARDIAC: Regular rate, regular rhythm. S1, S2. No S3, S4, gallops, rubs, or murm urs noted. ABDOMEN: Soft, nontender, bowel sounds x4 quadrants. No organomegaly. No palpable mass es. SKIN: [place], warm, dry, no cyanosis, no clubbing, no peripheral edema. VASCULAR: +2 carotids b ilateral, +2 radials bilateral, +1 dorsal pedal and posterior tibial pulses bilateral. LABORATORY STUDIES: Laboratory studies drawn today show WBC of 7.41, hemoglobin of 13.2, hematocrit of 36.7, platelet count of 199, sodium of 136, potassium 3.8, chloride 102, CO2 26, BUN 20, creatinin e 0.7, glucose 90, calcium 9.5, magnesium of 1.4. As mentioned on patient's admission, initial tropo yehuda was 0.126. Yesterday morning it was 0.044. She was noted to have mildly elevated lipase this mo rning at 3:03. TSH level was done on the . That was 5.250. ProBNP done on the was noted t o be at 202. STUDIES: Electrocardiogram as mentioned above. Exercise treadmill and MPI study as mentioned above. Echocardiogram as mentioned above. ASSESSMENT AND PLAN: Abnormal EKG with troponin changes. Patient reporting ongoing fatigue symptoms with nausea and vomiting with significant symptoms starting through Thursday of last week. N oted to have elevated troponin on admission, normal LV systolic function noted off echocardiogram on September 29, with normal exercise treadmill testing, but abnormal MPI study done on the , which yeny wed inferior lateral and septal hypoperfusion, which could be related to artifact or infarct without evidence of ischemia. No focal wall motion abnormality noted. The patient noted to have significant ly worsening looking EKG done this morning with more significant biphasic T-waves in V2 and V3 (Welle ns sign with inverted T-waves through V4 through V6). Potentially, her symptoms could be her anginal equivalent, and with worsening electrocardiogram, elevated troponin levels, and abnormal stress test ing, it is felt best that she be further evaluated for cardiac ischemia by undergoing cardiac cathete rization. We will plan for to have this done today. She has been n.p.o. in preparation for a barium swallow, which we will hold off on that procedure until coronary angiogram can be done. Hypertension: With history of hypertension, she has been noted to be hypotensive since being admitte d to the hospital. Her current medications are on hold. We will consider resuming if necessary. Previous smoker. Patient reports she quit greater than 10 years ago. Thank you for this cardiology consultation, further recommendations will come post cardiac catheteriz ation. The patient discussed with both hospitalist, Dr. Mckeon, Dr. Sandoval, and Dr. [facility]. /[id number]/MODL
--- NOTE | 2017-09-30 12:52 | CPIP ---
[f rep st] INVASIVE CARDIAC PROCEDURE INDICATION FOR PROCEDURE: Non-STEMI. PROCEDURE: 1. Nonselective right groin sheathogram. 2. Selective coronary angiography and left heart catheterization. 3. Left ventriculogram. HISTORY: Briefly, this is a 61-year-old female with history of recent admission for nausea, hyperten garett, elevated troponins, abnormal ECG. The patient consented for left heart catheterization after h er nuclear scan was indeterminate. DESCRIPTION OF PROCEDURE: After informed consent was obtained, the patient was brought to [facility] where the right groin was prepped and draped in normal sterile fashion. Using lidocaine, a short 6-Icelandic sheath in the right common femoral artery verified angiographically. The patient had been administered Plavix p.o. before the case. JL4 catheter was advanced to left coronary artery. Images of the left coronary artery revealed separate origin of the left cir cumflex artery. This revealed a widely patent left circumflex artery terminates to a marginal 1 soledad inal arteries, which were both widely patent. At this time, the JL4 catheter was removed. The JR4 catheter was advanced to the right coronary julius ry. Images of the right coronary artery revealed normal os proximal mid RC, and a small RPDA, RPLS c oming off, but no significant disease. After images obtained, the JR4 catheter removed. A JL3.5 Catheter then was then advanced and this brush ccessfully cannulated the LAD. This showed a widely patent LAD giving off a tiny marginal arteries, but no significant disease and the JL4 catheter, a JL3.5 catheter was removed. The pigtail catheter was then advanced to left ventricle. LVEDP was 22 mmHg. Left ventriculogram in the YEN projection showed EF of 65% with significant LVH. There was no pull-b ack gradient between the LV and the aorta. Pigtail catheter was removed from the 3.5 wire. Right gr oin was closed with manual pressure. Patient tolerated the procedure well. No complications. IMPRESSION: 1. Normal coronary arteries with separate ostial takeoff of both left circumflex artery and left ant erior descending. 2. Normal ejection fraction. PLAN: The patient's underlying symptoms are not coming from a coronary obstruction. Continue workup as per primary team. /[id number]/MODL
--- NOTE | 2017-09-30 14:37 | HOSPPROG ---
Hospitalist Progress Note Assessment/Plan: 61yo F relatively healthy F admitted from PCP office for hypotension in setting of nausea, vomiting found to have ROBIN, electrolyte disturbances and elevated troponin. #Elevated troponin: Peaked 0.164. Had indeterminate exercise stress with MPI however developed deep TWI in anterior leads on ECG this morning concerning for Wellens' sign so was taken for coronary angiography which showed patent cors. Will monitor arteriotomy site and H/H in morning. I suspect the troponin leak was driven by hypotension. #Nausea/emesis: Acute on chronic and now resolved. Associated with significant weight loss. No improvement with cholecystectomy, tx of H pylori, or PPI in past. Coronary disease ruled out. Will keep NPO at midnight for upper GI series in AM to evaluate for peptic ulcer disease. OT consulted to evaluate for peripheral vertigo as etiology as well. IV anti-emetics as needed. #Hypotension: Improved, no e/o hypoperfusion. Related to ongoing anti- hypertensive use in setting of poor PO and weight loss. Now taking PO. Monitor. #ROBIN: Resolved with IVF/PO intkae, Cr 1.5->0.7. #Hyponatremia: Resolved. #H/o tobacco use VTE ppx: low risk, SCDs Diet: regular, NPO at midnight for GI series Code: FCFT Disposition: remain inpatient for monitoring of arteriotomy site for complications and further evaluation of nausea vomiting with IV emetics Subjective: Doing well this morning. Tolerated all meals yesterday without n/v or abdominal pain. No vertigo/dizziness. No chest pain, shortness of breath. Objective: Vital Signs Temp Pulse Resp BP Pulse Ox 36.5 C 62 15 156/83 H 94 09/30/17 14:27 09/30/17 14:27 09/30/17 14:27 09/30/17 14:27 09/30/17 14:27 Laboratory Results 09/30/17 03:16 09/30/17 03:16 09/29/17 09/30/17 10/01/17 05:59 05:59 05:59 Intake Total 400 4935 Balance 400 4935 - Physical Exam Constitutional: no apparent distress, appears nourished, not in pain, other ( thin, small stature) Eyes: PERRL, anicteric sclera, EOMI Ears, Nose, Mouth, Throat: moist mucous membranes, hearing normal, ears appear normal, no oral mucosal ulcers Cardiovascular: regular rate and rhythym, no murmur, rub, or gallop Respiratory: no respiratory distress, no rales or rhonchi, clear to auscultation Gastrointestinal: normoactive bowel sounds, soft, non-tender abdomen, no palpable masses Skin: no rashes or abrasions, no fluctuance, no induration Musculoskeletal: full muscle strength, no muscle tenderness, normal joint ROM Neurologic: AAOx3, sensation intact bilaterally Psychiatric: interacting appropriately, not anxious, not encephalopathic, thought process linear ICD10 Worksheet Patient Problems: Problems Problem Status Onset Elevated troponin Acute Epigastric pain Acute Hyponatremia Acute Abdominal pain Acute Vomiting Acute
[2017-09-30] MEDS: traZODone 50 MG TAB PO SCH (21:41)
[2017-10-01] MEDS: PANTOPRAZOLE SODIUM 40 MG TAB PO SCH (09:44)
[2017-10-01 12:08] VITALS: BP 155/69
--- NOTE | 2017-10-01 12:29 | ASDISCHSUM ---
Discharge Information Plan Status:Home with No Needs Medically Cleared to Leave:10/01/2017 Discharge Date:10/01/2017 12:23 PM CM D/C Disposition:Home, Routine, Self-Care ADT D/C Disposition:Home, Routine, Self-Care Projected Discharge Date:10/01/2017 12:23 PM Transportation at D/C:Family Discharge Delay Reason: Follow-Up Date:10/01/2017 12:23 PM Discharge Slot: Final Diagnosis: Placement Information Patient Contact Information Contact Name:JOZEF Relationship: Address:[address] City:[place] Alternate Phone: [facility]/Zip Code:[place] [address] Email: Financial Information Financial Class:Self-Pay Primary Plan Desc:SELF PAY Primary Plan Number: Secondary Plan Desc: Secondary Plan Number: Assessment Information LACE LACE Length of stay for Answers: 2 days current admission Acuity / Level of Answers: Yes Care: Did the patient have an inpatient admission? Comorbidities - select Answers: Coronary Artery Disease all that apply Other Notes: HTN # of Emergency department Answers: 1-2 visits in the last 6 months Score: 9 Date Signed: 10/01/2017 12:27 PM Electronically Signed By:Jess Marie RN [facility] CM Progress Note CM Note CM Note Notes: Chart reviewed. 61 year old female admitted via ED for c/o abdominal pain was found to have an elevated troponin. No needs anticipated at this time. CM available should needs arise. Plan: Likely home independently when medically cleared for discharge. Date Signed: 09/29/2017 10:28 AM Electronically Signed By:Ida Hernandez RN [facility] CM Progress Note CM Note CM Note Notes: 09/30/2017 Case Management Note Met w/pt during rounds this morning. Pt to have cardiac cath today as well as upper GI study. Case Management anticipating independent discharge but will re eval after pt recovers from procedures today. Case Management d/c poc: to be determined Case Management to follow. Date Signed: 09/30/2017 12:15 PM Electronically Signed By:Jess Marie RN Case Management Discharge Plan Note Case Management Discharge Discharge Order Complete? Answers: Yes Patient to Obtain Answers: Independently Medications Transportation Arranged Answers: Family/Friends Discharge Comments Notes: 10/01/2017 Case Management Note Pt discharged independent with follow up as directed. Date Signed: 10/01/2017 12:28 PM Electronically Signed By:Jess Marie RN Intervention Information
--- NOTE | 2017-10-01 14:25 | PDCARPN ---
Cardiology Progress Note Chief Complaint: Patient reports she would like to go home. Assessment/Plan: Assessment: 61-year-old female with significant past history that includes hypertension, previous smoker, and family history of coronary artery disease at early onset ( father 1st MS in his 50s). Admitted for nausea and vomiting on September 28. Noted to have indeterminate troponin level on admission with downward decline. Echocardiogram done on 09/29 showing normal LV systolic function with EF of 70- 75% with no wall motion abnormality. Trivial to mild TR noted. Underwent ETT/ MPI study, ETT showed no signs of ischemia at peak exercise, but MPI study did note inferior lateral and septal hypoperfusion which could be related to artifact or infarct without evidence of ischemia. 09/30/2017, a.m. Electrocardiogram showing willing stay T-waves in V1 through V3 with T-wave inversion in V4 and V5. Taken to the cardiac catheterization lab on 09/30, showing normal coronary arteries, normal LV systolic function with no wall motion abnormalities. EF was estimated at 65% with LVH. 10/01/2017: Patient reports no chest pain or pressure. She has mild discomfort at catheter insertion site, right groin site, with noted palm size ecchymoses around puncture site. No signs of hematoma, bleeding, swelling, or drainage. Vital signs been stable. Normal CMS checks to both lower extremities. +2 post tibial pulses bilateral. Plan: 1. Abnormal troponin/abnormal stress test: Cardiac catheterization showed no flow limiting disease. Potentially mild elevated troponin due to poor perfusion during episode of hypotension. Patient reports no chest pressure or pain. Would like her to follow up with our office in the next 1-2 weeks for evaluation of her puncture site from her recent procedure. Appointment has been made. 2. Hypertension: Patient with reported history of hypertension, but noted be hypotensive on admission. Hypertension medications have been held. BP within limits. 3. Nausea and vomiting: Resolved with medication. Upper GI small-bowel series done, showing no evidence of esophagitis is, gastritis, or peptic ulcer disease. Patient plan to be discharged home today, post cardiac catheterization discharge instructions went over with the patient and follow-up appointment made for re-evaluation of her cardiac catheterization axis point. 10/01/17 14:23 Subjective: Patient denies of any chest pressure, pain, shortness of breath, palpitations, lightheadedness, near-syncope or syncopal events. Reviewed/Discussed With: hospitalist (Dr Mckeon), other (Dr Sandoval) Objective: Vital Signs (8 Hrs) Temp Pulse Resp BP Pulse Ox 10/01/17 12:00 37.1 C 88 20 155/69 H 96 10/01/17 08:00 74 17 142/84 H 94 Intake/Output (24 Hrs) 09/30/17 10/01/17 10/02/17 05:59 05:59 05:59 Intake Total 4935 1234 Balance 4935 1234 Intake: Oral (ml) 1800 300 IV Infused (ml) 3135 934 Lr 1,000 ml @ 150 mls/hr 3135 IV CONT MATT Rx#: [id number] Lr 1,000 ml @ 150 mls/hr 934 IV CONT MATT Rx#: [id number] Other: Number of Voids Toilet 4 1 Result Diagrams: 10/01/17 03:09 09/30/17 03:16 Cardiac Labs: Cardiac Lab Results (72 Hrs) 09/29/17 09/29/17 09/28/17 13:50 03:56 19:54 Troponin I 0.044 H 0.078 H 0.126 H - Physical Exam Constitutional: WDWN, healthy appearing, no apparent distress Ears, Nose, Mouth, Throat: moist mucous membranes Cardiovascular: regular rate and rhythm, no murmurs, no rubs, no gallops, pulses symmetric bilat, No jugular vein distention, No carotid bruit Peripheral Pulses: 2+: carotid (R), carotid (L), dorsalis-pedis (R), dorsalis- pedis (L) Respiratory: clear to auscultate bilat, no crackles, no wheezes Gastrointestinal: normoactive bowel sounds Skin: no rashes, warm, no edema, other (Right groin site, catheter insertion site, with no redness, swelling, drainage, or hematoma. Palm size ecchymoses noted around insertion site. No auscultated bruit.) Neurologic: AAOx3 Psychiatric: cooperative, interactive, following commands ICD10 Worksheet Patient Problems: Problems Problem Status Onset Abdominal pain Acute Vomiting Acute Elevated troponin Acute Hyponatremia Acute Epigastric pain Acute
--- NOTE | 2017-10-01 15:54 | PDDCSUM ---
Discharge Summary Discharge Summary: Date of Admission: 09/28/2017 Date of Discharge: 10/01/2017 Consultants: cardiology Procedures/Studies: coronary angiography, exercise stress test with MPI, TTE Brief Hospital Course by Diagnosis: 61yo F admitted from PCP office for hypotension in setting of nausea, vomiting found to have ROBIN, electrolyte disturbances and elevated troponin. #Elevated troponin: Peaked 0.164. Indeterminate exercise stress with MPI ( inferolateral + septal hypoperfusion) and deep T wave inversions on morning of prompted coronary angiography which was normal. Her troponin leak was likely precipitated by hypotension. She did develop a post-cath ecchymosis at R groin site with good distal neurovascular function. Post-cath restrictions were given to the patient and she has follow up with cardiology in 1 week. #Nausea/emesis: This is intermittent. Associated with significant weight loss. No improvement in sxs with cholecystectomy, tx of H pylori previously. Coronary disease ruled out as above. Upper GI series without esophagitis, gastritis or PUD. The etiology of this is still uncertain. Recommend referral to GI for potential EGD. She was tolerating PO during this admission. We have switched her PPI to pantoprazole and prescribed anti-emetics. #Hypertension: Presented with hypotension that was fluid responsive. We discontinued her anti-hypertensives. #ROBIN: Resolved with IVF/PO intake, Cr 1.5->0.7. #H/o tobacco use: Congratulated on quitting. Follow Up Plan/Items for Follow Up: 1. Recommend referral to GI for further evaluation of nausea/vomiting and potential EGD 2. Monitor BP, may need to add back anti-hypertensive 3. Follow up with cardiology to assess R groin ecchymoses Tests Pending at Discharge: none Medications at Discharge: Please refer to EMR for complete list. Discontinued lisinopril/hctz, omeprazole and added pantoprazole, compazine, zofran. Physical Exam: Vitals reviewed and patient examined on day of discharge. She is alert with normal cardiac, pulmonary and abdominal exams. She has a several cm ecchymosis at R groin site without bruit.
== END 2017-10-01 12:23 | disposition home or self-care (01) | DRG 683 ==
LOC: F2W 18:19
PROVIDERS: ADMIT Internal Medicine; ATTEND Internal Medicine
DX: N17.9 Acute kidney failure, unspecified (principal); E87.1 Hypo-osmolality and hyponatremia; R79.89 Other specified abnormal findings of blood chemistry; R11.2 Nausea with vomiting, unspecified; I95.9 Hypotension, unspecified; I10 Essential (primary) hypertension; K21.9 Gastro-esophageal reflux disease without esophagitis; Z87.891 Personal history of nicotine dependence
CPT/HCPCS: 84484-PO; A9500; J1644; J1650; J2250; J3010; J3475; Q9967

== ENCOUNTER 2018-01-19 00:42 | Observation (INO) | payer OTHER ==
[2018-01-19] MEDS ORDERED: NS 2,000 ML IV ONE (00:47)
[2018-01-19] MEDS ORDERED: ONDANSETRON 4 MG/2 ML VIAL IVP ONE (00:50)
--- NOTE | 2018-01-19 00:50 | EDPHY ---
H & P Time Seen by Provider: 01/19/18 00:48 HPI/ROS: HPI CHIEF COMPLAINT: Multiple complaints HISTORY OF PRESENT ILLNESS: 62-year-old female, history of hypertension, presents emergency room multiple complaints. She reports since yesterday she has had nausea vomiting diarrhea, dry heaving, abdominal pain, chest pain. Additionally she reports anxiety. She arrives to the emergency room by private vehicle. Her main complaint is nausea, vomiting, she also reports diarrhea nonbloody. Also reports that her blood pressures been fluctuating greatly. Shows reports today that she has got lightheaded and dizzy when she goes to walk. She believes she is dehydrated. Additionally she reports abdominal pain vague description. States she has pain all over abdomen. Distally reports chest pain. Denies shortness of breath, denies cough, denies fever, denies recent illness. Of note patient's discharge summary reviewed on October 01. She was admitted for hypotension due to dehydration and acute kidney injury at that time. From intractable nausea vomiting. Subsequently also had elevated troponin abnormal stress test however abnormal cardiac catheterization. She also had an abnormal EKG last time with T-wave inversions. Past Medical History: Hypertension Past Surgical History: No recent surgery Social History: Patient denies drugs alcohol tobacco. Family History: Noncontributory ROS REVIEW OF SYSTEMS: 10 Systems were reviewed and negative with the exception of the elements mentioned in the history of present illness. Exam Constitutional nontoxic, triage nursing summary reviewed, vital signs reviewed , awake/alert. Eyes normal conjunctivae and sclera, EOMI, PERRLA. HENT normal inspection, atraumatic, moist mucus membranes, no epistaxis, neck supple/ no meningismus, no raccoon eyes. Respiratory clear to auscultation bilaterally, normal breath sounds, no respiratory distress, no wheezing. Cardiovascular rate normal, regular rhythm, no murmur, no edema, distal pulses normal. Gastrointestinal soft, non-tender, no rebound, no guarding, normal bowel sounds, no distension, no pulsatile mass. Genitourinary no CVA tenderness. Musculoskeletal no midline vertebral tenderness, full range of motion, no calf swelling, no tenderness of extremities, no meningismus, good pulses, neurovascularly intact. Skin pink, warm, & dry, no rash, skin atraumatic. Neurologic awake, alert and oriented x 3, AAOx3, moves all 4 extremities equally, motor intact, sensory intact, CN II-XII intact, normal cerebellar, normal vision, normal speech. Psychiatric normal mood/affect. Heme/Lymph/Immune no lymphadenopathy. Differential diagnosis includes but is not limited to and in no particular order : Differential diagnosis includes but is not limited to: ACS, atypical chest pain, pneumothorax, pneumonia, pulmonary embolism, aortic dissection, congestive heart failure, tumor, musculoskeletal pain, esophageal pain, GERD, peptic ulcer disease, pancreatitis Bowel obstruction, appendicitis, gallbladder disease, diverticulitis, colitis, enteritis, perforated viscus, gastritis, GERD , esophagitis, urinary tract infection, pyelonephritis, kidney stones Medical Decision Making: Plan for this patient IV establishment IV fluid bolus Zofran for nausea, basic blood work, electrolytes, EKG, troponin, chest x-ray, rule out acute coronary syndrome IV fluids, Zofran for nausea Ativan for anxiety Re-evaluation: EKG interpretation by me on record in [facility] system. Impression time of EKG 0047: Normal sinus rhythm rate of 65, by a atrial enlargement present. However no ST elevation no ST depression no T-wave abnormalities no prolonged intervals. When compared to this patient's old EKG dated 09/30/2017 it is different. The previous EKG shows deep inverted T-wave abnormalities V2 V3 V4 V5 this is not present on this EKG today. ED x-ray chest one view: Negative for acute cardiopulmonary disease. 0203: Patient re-evaluate this time. Patient is not vomiting at this time feeling better after IV fluids and Zofran. Patient's blood work reviewed. Labs reviewed patient has a low sodium. Troponin negative. Urinalysis pending. CT scan abdomen pelvis with IV contrast: Shows fluid in the stomach. Otherwise unremarkable CT scan no free fluid no free air. No evidence of bowel obstruction. Called to be Dr. Byers. 0249AM: Patient re-evaluated she was dry heaving earlier. IV Benadryl and IV Haldol ordered. This was given to her with 2 L of fluid. She is improving slowly. CT scan reviewed. Labs reviewed. Patient be admitted the hospital service for dehydration, nausea vomiting and diarrhea. Dr. Wilson Accepts Patient has elevated lactic acid noted to be 3. No indication for sepsis. Lactic acid is elevated due to dehydration nausea and vomiting. Patient will get a 3rd L fluid. Hospitalist service updated. Repeat lactic after 3rd L. Source: Patient - Medical/Surgical History Hx Asthma: No Hx Chronic Respiratory Disease: No Hx Diabetes: No Hx Cardiac Disease: No Hx Renal Disease: No Hx Cirrhosis: No Hx Alcoholism: No Hx HIV/AIDS: No Hx Splenectomy or Spleen Trauma: No Other PMH: Hypertension, cholecystectomy, PUD, vertigo - Social History Smoking Status: Former smoker Constitutional: Initial Vital Signs Temperature (C) 36.5 C 01/19/18 00:48 Heart Rate 78 01/19/18 00:48 Respiratory Rate 16 01/19/18 00:48 Blood Pressure 187/95 H 01/19/18 00:48 O2 Sat (%) 97 01/19/18 00:48 O2 Delivery Mode Room Air Allergies/Adverse Reactions: No Known Allergies Allergy (Verified 09/28/17 17:52) Home Medications: Medication Instructions Recorded Pantoprazole Sodium [Protonix 40mg 40 mg PO DAILY #30 tab 10/01/17 (*)] Lisinopril [Zestril 10 mg (*)] 10 mg PO DAILY 01/19/18 Medical Decision Making - Data Points Laboratory Results: Laboratory Results 01/19/18 01:02 01/19/18 01:02 Medications Given: Discontinued Medications Diphenhydramine HCl (Benadryl Injection) 25 mg IVP EDNOW ONE Stop: 01/19/18 02:44 Last Admin: 01/19/18 02:56 Dose: 25 mg Enoxaparin Sodium (Lovenox) 40 mg SC DAILY [facility] Stop: 07/18/18 08:59 Last Admin: 01/19/18 10:18 Dose: Not Given Haloperidol Lactate (Haldol Injection) 2.5 mg IVP EDNOW ONE Stop: 01/19/18 02:44 Last Admin: 01/19/18 02:57 Dose: 2.5 mg Sodium Chloride (Ns) 2,000 mls @ 0 mls/hr IV EDNOW ONE; Wide Open PRN Reason: Protocol Stop: 01/19/18 00:48 Last Admin: 01/19/18 01:11 Dose: 2,000 mls Potassium Chloride/Sodium Chloride (Ns W/ 20 Kcl/L) 1,000 mls @ 100 mls/hr IV CONT MATT Stop: 07/18/18 02:59 Last Admin: 01/19/18 04:45 Dose: 1,000 mls Sodium Chloride (Ns) 1,000 mls @ 0 mls/hr IV EDNOW ONE; Wide Open PRN Reason: Protocol Stop: 01/19/18 03:15 Last Admin: 01/19/18 03:19 Dose: 1,000 mls Ondansetron HCl (Zofran) 4 mg IVP EDNOW ONE Stop: 01/19/18 00:51 Last Admin: 01/19/18 01:11 Dose: 4 mg Point of Care Test Results: Chemistry 01/19/18 01:05 POC Troponin I 0.01 ng/mL ng/mL (0.00-0.08) Departure - Departure Disposition: [facility] Inpatient Acute Clinical Impression: Dehydration, Vomiting Condition: Serious
[2018-01-19 01:09] LABS: PLATELET COUNT 268 10^3/uL (150-400)
[2018-01-19 01:16] LABS: INR 0.98 (0.83-1.16); PROTIME(PATIENT) 13.2 SEC (12.0-15.0)
[2018-01-19] MEDS ORDERED: IOPAMIDOL (ISOVUE-300) 100 ML BTL ONE (02:03)
[2018-01-19] MEDS ORDERED: HALOPERIDOL LACT 5 MG/ML INJ IVP ONE (02:43)
[2018-01-19] MEDS ORDERED: ONDANSETRON DISINTEGRATING 4 MG TAB PO PRN (02:49)
[2018-01-19] MEDS ORDERED: ONDANSETRON 4 MG/2 ML VIAL IVP PRN (02:49)
[2018-01-19] MEDS ORDERED: PROMETHAZINE HCL 25 MG/ML INJ IVP PRN (02:49)
[2018-01-19] MEDS ORDERED: ACETAMINOPHEN 325 MG TAB PO PRN (02:49)
[2018-01-19] MEDS ORDERED: NS W/ 20 KCl/L 1,000 ML IV SCH (03:00)
[2018-01-19] MEDS ORDERED: NS 1,000 ML IV ONE (03:14)
--- NOTE | 2018-01-19 03:41 | PDGENHP ---
History and Physical - Chief Complaint Nasuea, vomiting - History of Present Illness 62 yo F presents with abdominal pain, nausea, vomiting, and diarrhea. The patient tells me her symptoms started around 3 PM. She first noticed epi- gastric abdominal pain. This was followed by nausea and vomiting. She also had 3 episodes of diarrhea. She had a similar presentation in September of this year without clear etiology. A cardiac work-up at that time, including catheterization, was unremarkable. Work-up in the ED today is notable for transaminitis and elevated lipase. CT notable for fluid-filled stomach. She feels better after Haldol and Benadryl, but is quite drowsy as a result. This has limited the history taking. She denies eating suspicious foods, sick contacts, or recent URI symptoms. Case discussed with ED physician Dr. Eddy; records reviewed and summarized above. History Information - Allergies/Home Medication List Allergies/Adverse Reactions: No Known Allergies Allergy (Verified 09/28/17 17:52) Home Medications: Hyoscyamine Sulfate [Levsin, Hyomax-Sl 0.125 mg (*)] 0.125 mg SL Q6H PRN [Last Taken Unknown] I have personally reviewed and updated: family history, medical history - Past Medical History no pertinent PMH - Surgical History Additional surgical history: - Family History Positive for: CAD - Social History Smoking Status: Former smoker Review of Systems Review of Systems: ROS: 10pt was reviewed & negative except for what was stated in HPI & below Physical Exam Physical Exam: Temp Pulse Resp BP Pulse Ox 36.8 C 98 22 H 164/86 H 98 01/19/18 03:03 01/19/18 03:03 01/19/18 03:03 01/19/18 03:03 01/19/18 03:03 Constitutional: appears nourished, uncomfortable Eyes: PERRL, EOMI Ears, Nose, Mouth, Throat: moist mucous membranes, no oral mucosal ulcers Cardiovascular: regular rate and rhythym, no murmur, rub, or gallop Respiratory: no respiratory distress, clear to auscultation Gastrointestinal: normoactive bowel sounds, soft, non-tender abdomen, No guarding, No rebound, No distension Skin: warm, normal color Musculoskeletal: full muscle strength, no muscle tenderness Neurologic: AAOx3, CN II-XII Intact Psychiatric: interacting appropriately, not anxious Lab Data & Imaging Review 01/19/18 01:02 01/19/18 01:02 WBC 10.78 10^3/uL (3.80-9.50) H 01/19/18 01:02 RBC 4.23 10^6/uL (4.18-5.33) 01/19/18 01:02 Hgb 15.8 g/dL (12.6-16.3) 01/19/18 01:02 Hct 42.5 % (38.0-47.0) 01/19/18 01:02 MCV 100.5 fL (81.5-99.8) H 01/19/18 01:02 MCH 37.4 pg (27.9-34.1) H 01/19/18 01:02 MCHC 37.2 g/dL (32.4-36.7) H 01/19/18 01:02 RDW 11.1 % (11.5-15.2) L 01/19/18 01:02 Plt Count 268 10^3/uL (150-400) 01/19/18 01:02 MPV 9.4 fL (8.7-11.7) 01/19/18 01:02 Neut % (Auto) 73.4 % (39.3-74.2) 01/19/18 01:02 Lymph % (Auto) 18.8 % (15.0-45.0) 01/19/18 01:02 [place] % (Auto) 6.7 % (4.5-13.0) 01/19/18 01:02 Eos % (Auto) 0.1 % (0.6-7.6) L 01/19/18 01:02 Baso % (Auto) 0.2 % (0.3-1.7) L 01/19/18 01:02 Nucleat RBC Rel Count 0.0 % (0.0-0.2) 01/19/18 01:02 Absolute Neuts (auto) 7.91 10^3/uL (1.70-6.50) H 01/19/18 01:02 Absolute Lymphs (auto) 2.03 10^3/uL (1.00-3.00) 01/19/18 01:02 Absolute Monos (auto) 0.72 10^3/uL (0.30-0.80) 01/19/18 01:02 Absolute Eos (auto) 0.01 10^3/uL (0.03-0.40) L 01/19/18 01:02 Absolute Basos (auto) 0.02 10^3/uL (0.02-0.10) 01/19/18 01:02 Absolute Nucleated RBC 0.00 10^3/uL (0-0.01) 01/19/18 01:02 Immature Gran % 0.8 % (0.0-1.1) 01/19/18 01:02 Immature Gran # 0.09 10^3/uL (0.00-0.10) 01/19/18 01:02 PT 13.2 SEC (12.0-15.0) 01/19/18 01:02 INR 0.98 (0.83-1.16) 01/19/18 01:02 APTT 24.1 SEC (23.0-38.0) 01/19/18 01:02 VBG Lactic Acid 3.0 mmol/L (0.7-2.1) H 01/19/18 02:55 Sodium 129 mEq/L (135-145) L 01/19/18 01:02 Potassium 3.7 mEq/L (3.3-5.0) 01/19/18 01:02 Chloride 86 mEq/L (97-110) L 01/19/18 01:02 Carbon Dioxide 18 mEq/l (22-31) L 01/19/18 01:02 Anion Gap 25 mEq/L (6-14) H 01/19/18 01:02 BUN 28 mg/dL (7-23) H 01/19/18 01:02 Creatinine 0.8 mg/dL (0.6-1.0) 01/19/18 01:02 Estimated GFR > 60 01/19/18 01:02 Glucose 149 mg/dL (70-100) H 01/19/18 01:02 Calcium 10.8 mg/dL (8.5-10.4) H 01/19/18 01:02 Phosphorus 3.8 mg/dL (2.5-4.5) 01/19/18 01:02 Magnesium 1.6 mg/dL (1.6-2.3) 01/19/18 01:02 Total Bilirubin 1.5 mg/dL (0.1-1.4) H 01/19/18 01:02 Conjugated Bilirubin 0.6 mg/dL (0.0-0.5) H 01/19/18 01:02 Unconjugated Bilirubin 0.9 mg/dL (0.0-1.1) 01/19/18 01:02 AST 187 IU/L (14-46) H 01/19/18 01:02 ALT 229 IU/L (9-52) H 01/19/18 01:02 Alkaline Phosphatase 81 IU/L (38-126) 01/19/18 01:02 POC Troponin I 0.01 ng/mL (0.00-0.08) 01/19/18 01:05 NT-Pro-B Natriuret Pep 255 pg/mL (0-125) H 01/19/18 01:02 Total Protein 8.0 g/dL (6.3-8.2) 01/19/18 01:02 Albumin 5.1 g/dL (3.5-5.0) H 01/19/18 01:02 Lipase 383 IU/L (23-300) H 01/19/18 01:02 Urine Color YELLOW 01/19/18 02:45 Urine Appearance CLEAR 01/19/18 02:45 Urine pH 5.0 (5.0-7.5) 01/19/18 02:45 Ur Specific Skipwith 1.026 (1.002-1.030) 01/19/18 02:45 Urine Protein NEGATIVE (NEGATIVE) 01/19/18 02:45 Urine Ketones TRACE (NEGATIVE) H 01/19/18 02:45 Urine Blood NEGATIVE (NEGATIVE) 01/19/18 02:45 Urine Nitrate NEGATIVE (NEGATIVE) 01/19/18 02:45 Urine Bilirubin NEGATIVE (NEGATIVE) 01/19/18 02:45 Urine Urobilinogen NEGATIVE EU (0.2-1.0) 01/19/18 02:45 Ur Leukocyte Esterase NEGATIVE (NEGATIVE) 01/19/18 02:45 Urine Glucose NEGATIVE (NEGATIVE) 01/19/18 02:45 Urine Opiates Screen NEGATIVE (NEGATIVE) 01/19/18 02:45 Urine Barbiturates NEGATIVE (NEGATIVE) 01/19/18 02:45 Ur Phencyclidine Scrn NEGATIVE (NEGATIVE) 01/19/18 02:45 Ur Amphetamine Screen NEGATIVE (NEGATIVE) 01/19/18 02:45 U Benzodiazepines Scrn NEGATIVE (NEGATIVE) 01/19/18 02:45 Urine Cocaine Screen NEGATIVE (NEGATIVE) 01/19/18 02:45 U Marijuana (THC) Screen NON-NEGATIVE (NEGATIVE) H 01/19/18 02:45 Imaging Review: CT A/P Prelim: fluid-filled distention of stomach dilated intra and extra hepatic bile ducts post choli oth neg macdade 2:30 Visualized and Interpreted EKG results: Yes EKG Interpretation: Positive for: normal sinsus rhythm Assessment & Plan Assessment: 62 yo F presents with nausea, vomiting, diarrhea, and several laboratory abnormalities. Plan: 1. Nausea, vomiting, diarrhea - Clinical picture most consistent with viral gastroenteritis noting acute onset and diffuse inflammation seen on labs ( elevated LFTs, elevated lipase). She did have a similar presentation in September of this year. At that time an upper GI series and cardiac catheterization were normal. Her abdominal exam is reassuring at this time - Admit for observation - NPO, mIVF - Anti-emetics PRN - GI PCR if diarrhea continues - If symptoms persist despite conservative therapy, consider GI consult for EGD 2. Abnormal LFTs - Pattern suggestive of hepatic inflammation, likely viral. - Monitor CMP 3. Hyponatremia - Most likely hypovolemic etiology noting vomiting and diarrhea. - S/p 3 L IVF in the ED noting elevated lactate - Monitor CMP 4. AGMA - Multifactorial from lactic acidosis and vomiting. - Continue IVF Diet - NPO, ADAT, mIVF Code - Full Ppx - LMWH Dispo - Admit under observation status
[2018-01-19] MEDS ORDERED: ENOXAPARIN 40 MG/0.4 ML SYR SC SCH (09:00)
--- NOTE | 2018-01-19 09:44 | ASMTCMCOM ---
CM Note CM Note Notes: Pt is a 62 y/o female admitted for nausea and vomiting. Pt will most likely d/c without any needs when medically stable. Pt has 'we care' for insurance, which will not qualify her for any outpatient services. No therapies ordered at this time. CM available for changes. Plan: Independent Date Signed: 01/19/2018 09:44 AM Electronically Signed By:MIGUEL Foley
[2018-01-19 11:13] VITALS: BP 120/69
--- NOTE | 2018-01-19 14:45 | PDDCSUM ---
Discharge Summary Discharge Summary: Date of Admission: January 19, 2018 Date of Discharge: January 20, 2018 Discharge Diagnoses: Acute gastroenteritis, resolved Hyponatremia, hypovolemic Transaminitis, 2/2 above Admission Diagnoses: Nausea, vomiting, and diarrhea Abnormal liver function tests Hyponatremia Anion gap metabolic acidosis, lactic acidosis Consultants: None. Hospital Course: The patient is a 62-year-old female who developed midepigastric abdominal pain, nausea, vomiting, and diarrhea earlier in the afternoon on January 19. She had a similar episode last September without clear etiology. Workup at that time, including cardiac catheterization, was unremarkable. Patient was noted to have mildly elevated liver function tests and lipase level. CT scan of the abdomen showed a fluid-filled stomach. Patient received Haldol and Benadryl, and IV fluids, which helped her symptoms greatly. She was found to be hyponatremic, which was attributed to hypovolemia. Patient was recommended to follow up with her PCP later in the week to recheck sodium level. Symptoms resolved the next day and patient was discharged to home. She was tolerating a diet and ambulating at time of discharge. Condition: Stable. Discharged to: Home. Pertinent tests/labs/imaging: Chest x-ray-no acute abnormality. EKG-normal sinus rhythm. Biatrial enlargement. QTC 462. CT abdomen/pelvis with contrast: Moderate fluid-filled distention of the stomach. Dilatation of intrahepatic and extrahepatic biliary ductal system post cholecystectomy. Medications: Resume home meds. Special instructions: Return to ED if symptoms worsen. Repeat sodium level in 3-5 days. Follow up: Follow up with PCP later this week.
--- NOTE | 2018-01-20 07:06 | CPEKG ---
Test Reason : OPEN Blood Pressure : / mmHG Vent. Rate : 065 BPM Atrial Rate : 065 BPM P-R Int : 135 ms QRS Dur : 079 ms QT Int : 444 ms P-R-T Axes : 082 048 083 degrees QTc Int : 462 ms Sinus rhythm Biatrial enlargement Low voltage, extremity leads Confirmed by Ton Dugan ([id number]) on 01/20/2018 7:05:18 AM Referred By: Confirmed By:Ton Dugan
== END 2018-01-19 15:32 | disposition home or self-care (01) ==
LOC: F3E 04:45
PROVIDERS: ADMIT Student in an Organized Health Care Education/Training Program; ATTEND Student in an Organized Health Care Education/Training Program
DX: R10.13 Epigastric pain (principal); R11.2 Nausea with vomiting, unspecified; R19.7 Diarrhea, unspecified; K31.89 Other diseases of stomach and duodenum; E86.0 Dehydration; Z90.49 Acquired absence of other specified parts of digestive tract
CPT/HCPCS: 80305; 84484-PO; 96374; G0378; J1200; J1630; J1650; J2405; Q9967

== ENCOUNTER 2018-02-07 12:12 | Inpatient (IN) | payer OTHER ==
[2018-02-07] MEDS ORDERED: ONDANSETRON 4 MG/2 ML VIAL IVP ONE ×2 (12:41→13:17)
[2018-02-07] MEDS ORDERED: FAMOTIDINE 20 MG/NACL 50 ML IV ONE (13:17)
[2018-02-07] MEDS ORDERED: NS 1,000 ML IV ONE ×2 (13:17→13:18)
[2018-02-07] MEDS ORDERED: HYDROmorphONE/DILAUDID 2 MG/ML INJ IVP ONE (13:17)
[2018-02-07] MEDS ORDERED: PROMETHAZINE HCL 25 MG/ML INJ IVP ONE (13:17)
[2018-02-07 13:29] LABS: PLATELET COUNT 213 10^3/uL (150-400)
--- NOTE | 2018-02-07 14:34 | EDPHY ---
H & P Time Seen by Provider: 02/07/18 13:05 HPI/ROS: HPI Upper abdominal pain, nausea, vomiting and diarrhea. 62-year-old female by private vehicle with her . This patient reports that yesterday evening she developed nausea followed by nonbilious nonbloody vomiting and associated epi gastric abdominal pain described as a burning sensation. She reports today she developed watery diarrhea. She reports that she has had consistent dry heaving through the morning and early afternoon and watery diarrhea. No bloody or melenic stool. She was seen in our emergency department and admitted to the hospital back in September of this year as well as December. At that time her presentation was very similar. In September she had upper GI series as well as a cardiac catheterization which were unremarkable. During her visit in September and December as well she has had some acute elevation of her lipase as well as transaminases. She denies any foreign travel. No change in diet. No ill contacts. ROS: Constitutional: No fever, no chills. No weakness. Eyes: No discharge. No changes in vision. ENT: No sore throat. No nasal congestion or rhinorrhea. Respiratory: No cough. No shortness of breath. Cardiac: No chest pain, no palpitations. Gastrointestinal: As above. Genitourinary: No hematuria. No dysuria or increased frequency with urination. Musculoskeletal: No back pain. No neck pain. No myalgias or arthralgias. Skin: No rashes. Neurological: No headache. No focal weakness or altered sensation. Past medical history: As above. Hypertension. Cholecystectomy, shingles. Social history: Former smoker. No alcohol. Here with her . Physical Exam: General Appearance: Alert, she appears uncomfortable, she is dry heaving. This patient is responding to questions appropriately and in full sentences. This patient appears well-hydrated and well-nourished. Eyes: Pupils equal and round no pallor or injection. No lid edema, erythema or injection. Respiratory: There are no retractions, lungs are clear to auscultation with good air movement bilaterally. Cardiovascular: Regular rate and rhythm. No murmur. Gastrointestinal: Abdomen is soft with enty-hu-xrszwsvy epigastric tenderness on palpation, no masses, bowel sounds normal. No focal tenderness at McBurney' s point. No Saunders sign. Neurological: Motor sensory function is grossly intact. Cranial nerves are normal. Gait is normal. Skin: Warm and dry, no rashes. Musculoskeletal: Neck is supple and nontender. Extremities are symmetrical. All joints range without pain or impingement. Psychiatric: No agitation. No depression. Database: EKG: Imaging: Right upper quadrant ultrasound: Some dilatation of the ductal system. May be consistent with post cholecystectomy changes. Results were discussed with staff radiologist. Procedures: Emergency department course: Triage vital signs reviewed. She was initially hypotensive that hypertensive. Vital signs are otherwise normal. She is afebrile. IV was placed. She was started on IV normal saline with 1-2 L to be given over the next 1-2 hours. She was given 4 mg of Zofran in triage prior to my evaluation. After my evaluation she was given an additional 4 point mg of IV Zofran, 12.5 mg of IV Phenergan, 20 mg of IV Pepcid and 0.5 mg of IV hydromorphone. Patient's blood work is very similar to her blood work from prior emergency department visit with this complaint back in September in December of this year. Some elevation of her lipase as well as transaminases. 2:40 p.m., the patient was re-evaluated, she is much more comfortable at this time. Repeat abdominal exam she is soft with mild and vague upper abdominal tenderness on palpation. Ultrasound to be obtained to evaluate ductal system. She has had a cholecystectomy. I discussed disposition with her. At this time she does not feel comfortable going home. I feel it is reasonable to admit her for observation overnight for continued antiemetics and IV fluids and to follow her transaminases. Blood pressure is currently 136/86. Hospitalist paged. 2:45 p.m., spoke with Dr. Marc Judge, hospitalist on-call. Case discussed with him in detail. Her previous history of reviewed. He accepts this patient for admission. Patient admitted to the hospitalist service in stable and improved condition. Differential Diagnosis: The differential diagnosis on this patient includes but is not limited to gastroenteritis, inflammatory bowel disorder, food-borne illness. Cholecystitis , appendicitis, bowel obstruction, other surgical etiology unlikely. This represents a partial list of diagnoses considered. These considerations are based on history, physical exam, past history, reassessment and diagnostic testing. Smoking Status: Never smoked Constitutional: Initial Vital Signs Temperature (C) 36 C 02/07/18 12:16 Heart Rate 74 02/07/18 12:16 Respiratory Rate 16 02/07/18 12:16 Blood Pressure 96/57 L 02/07/18 12:16 O2 Sat (%) 95 02/07/18 12:16 O2 Delivery Mode Room Air Allergies/Adverse Reactions: No Known Allergies Allergy (Verified 09/28/17 17:52) Home Medications: Medication Instructions Recorded Pantoprazole Sodium [Protonix 40mg 40 mg PO DAILY #30 tab 10/01/17 (*)] Lisinopril [Zestril 10 mg (*)] 10 mg PO DAILY 01/19/18 Medical Decision Making - Diagnostics Imaging Results: Imaging Impressions Abdomen Ultrasound 02/07/18 14:22 Impression: 1. Status post cholecystectomy with dilatation of the common bile duct up to 1.2 cm without choledocholithiasis or obstructing mass visualized. No intrahepatic biliary ductal dilatation. With clinical/laboratory concern for biliary obstruction, further evaluation with MRCP is recommended 2. Diffuse fatty infiltration of the liver Dr. Flores was notified these findings by telephone at 3:20 PM on 02/07/2018 - Data Points Laboratory Results: Laboratory Results 02/07/18 12:00 02/07/18 12:00 02/07/18 02/07/18 02/07/18 12:40 12:40 12:40 WBC RBC Hgb Hct MCV MCH MCHC RDW Plt Count MPV Neut % (Auto) Lymph % (Auto) [place] % (Auto) Eos % (Auto) Baso % (Auto) Nucleat RBC Rel Count Absolute Neuts (auto) Absolute Lymphs (auto) Absolute Monos (auto) Absolute Eos (auto) Absolute Basos (auto) Absolute Nucleated RBC Immature Gran % Immature Gran # PT 12.8 SEC SEC (12.0-15.0) INR 0.94 (0.83-1.16) Sodium Potassium Chloride Carbon Dioxide Anion Gap BUN Creatinine Estimated GFR Glucose Calcium Total Bilirubin Conjugated Bilirubin Unconjugated Bilirubin AST ALT Alkaline Phosphatase Total Protein Albumin Lipase Vitamin B12 Pending Hepatitis A IgM Ab Pending Hep Bs Antigen Pending Hep B Core IgM Ab Pending Hepatitis C Antibody Pending 02/07/18 02/07/18 12:00 12:00 WBC 5.65 10^3/uL 10^3/uL (3.80-9.50) RBC 3.83 10^6/uL L 10^6/uL (4.18-5.33) Hgb 14.2 g/dL g/dL (12.6-16.3) Hct 42.1 % % (38.0-47.0) MCV 109.9 fL H fL (81.5-99.8) MCH 37.1 pg H pg (27.9-34.1) MCHC 33.7 g/dL g/dL (32.4-36.7) RDW 13.2 % % (11.5-15.2) Plt Count 213 10^3/uL 10^3/uL (150-400) MPV 9.5 fL fL (8.7-11.7) Neut % (Auto) 51.2 % % (39.3-74.2) Lymph % (Auto) 37.0 % % (15.0-45.0) [place] % (Auto) 10.6 % % (4.5-13.0) Eos % (Auto) 0.4 % L % (0.6-7.6) Baso % (Auto) 0.4 % % (0.3-1.7) Nucleat RBC Rel Count 0.0 % % (0.0-0.2) Absolute Neuts (auto) 2.90 10^3/uL 10^3/uL (1.70-6.50) Absolute Lymphs (auto) 2.09 10^3/uL 10^3/uL (1.00-3.00) Absolute Monos (auto) 0.60 10^3/uL 10^3/uL (0.30-0.80) Absolute Eos (auto) 0.02 10^3/uL L 10^3/uL (0.03-0.40) Absolute Basos (auto) 0.02 10^3/uL 10^3/uL (0.02-0.10) Absolute Nucleated RBC 0.00 10^3/uL 10^3/uL (0-0.01) Immature Gran % 0.4 % % (0.0-1.1) Immature Gran # 0.02 10^3/uL 10^3/uL (0.00-0.10) PT INR Sodium 140 mEq/L mEq/L (135-145) Potassium 4.6 mEq/L mEq/L (3.5-5.2) Chloride 103 mEq/L mEq/L (97-110) Carbon Dioxide 18 mEq/l L mEq/l (22-31) Anion Gap 19 mEq/L H mEq/L (6-14) BUN 10 mg/dL mg/dL (7-23) Creatinine 0.7 mg/dL mg/dL (0.6-1.0) Estimated GFR > 60 Glucose 121 mg/dL H mg/dL (70-100) Calcium 10.1 mg/dL mg/dL (8.5-10.4) Total Bilirubin 1.7 mg/dL H mg/dL (0.1-1.4) Conjugated Bilirubin 0.6 mg/dL H mg/dL (0.0-0.5) Unconjugated Bilirubin 1.1 mg/dL mg/dL (0.0-1.1) AST 290 IU/L H IU/L (14-46) ALT 198 IU/L H IU/L (9-52) Alkaline Phosphatase 85 IU/L IU/L (38-126) Total Protein 8.1 g/dL g/dL (6.3-8.2) Albumin 5.1 g/dL H g/dL (3.5-5.0) Lipase 527 IU/L H IU/L (23-300) Vitamin B12 Hepatitis A IgM Ab Hep Bs Antigen Hep B Core IgM Ab Hepatitis C Antibody Medications Given: Discontinued Medications Hydromorphone HCl (Dilaudid) 0.5 mg IVP EDNOW ONE Stop: 02/07/18 13:18 Last Admin: 02/07/18 13:38 Dose: 0.5 mg Sodium Chloride (Ns) 1,000 mls @ 0 mls/hr IV EDNOW ONE; Wide Open PRN Reason: Protocol Stop: 02/07/18 13:18 Last Admin: 02/07/18 13:38 Dose: 1,000 mls Sodium Chloride (Ns) 1,000 mls @ 0 mls/hr IV EDNOW ONE; Wide Open PRN Reason: Protocol Stop: 02/07/18 13:19 Last Admin: 02/07/18 13:37 Dose: 1,000 mls Famotidine/Sodium Chloride (Pepcid 20 Mg (Premix)) 50 mls @ 200 mls/hr IV EDNOW ONE Stop: 02/07/18 13:31 Last Admin: 02/07/18 13:42 Dose: Not Given Ondansetron HCl (Zofran) 4 mg IVP EDNOW ONE Stop: 02/07/18 12:42 Last Admin: 02/07/18 12:45 Dose: 4 mg Ondansetron HCl (Zofran) 4 mg IVP EDNOW ONE Stop: 02/07/18 13:18 Last Admin: 02/07/18 13:33 Dose: Not Given Promethazine HCl (Phenergan) 12.5 mg IVP EDNOW ONE Stop: 02/07/18 13:18 Last Admin: 02/07/18 13:38 Dose: 12.5 mg Departure - Departure Disposition: [facility] Acute Clinical Impression: Vomiting and diarrhea, Transaminitis, Elevated lipase
[2018-02-07] MEDS ORDERED: ONDANSETRON DISINTEGRATING 4 MG TAB PO PRN (15:21)
[2018-02-07] MEDS ORDERED: ACETAMINOPHEN 325 MG TAB PO PRN (15:21)
[2018-02-07 15:31] LABS: INR 0.94 (0.83-1.16); PROTIME(PATIENT) 12.8 SEC (12.0-15.0)
[2018-02-07] MEDS: NS 1,000 ML IV SCH (16:16)
--- NOTE | 2018-02-07 16:25 | GHP ---
DATE OF ADMISSION: 02/07/2018 CHIEF COMPLAINT: Nausea, vomiting, and diarrhea. HISTORY OF PRESENT ILLNESS: This is a 62-year-old female who has had multiple recent admissions for the same. She presented today with uncontrolled vomiting , as well as some diarrhea. She tells me that the diarrhea is not typical, although in reviewing old records, she has had diarrhea before. She has had a significant workup for this in the past. She was initially seen at [facility] where they suspected gallbladder pathology given cholelithiasis and she underwent a cholecystectomy. Prior to that, she had 2 weeks of uncontrolled vomiting and about 20 to 25 pounds weight loss. Since then, she has had recurrent episodes of this. This is extremely this is her fourth hospitalization here in the last 7 months. For the same. She has not been hospitalized every time. She does use marijuana and hot showers do improve her symptoms. She had an MRCP done at [facility], which they report was negative for choledocholithiasis. She had a CT scan here, which showed mildly dilated biliary duct, status post cholecystectomy and a distended stomach. She had an ultrasound in the ED today, which shows slightly dilated ducts consistent with cholecystectomy. She had been started on hyoscyamine, as well as pantoprazole which has not significantly helped her symptoms. She had a negative cath after concern for an anginal equivalent and elevated troponin. Her is concerned that her fluctuating blood pressures have contributed to this. No one else is sick like this around her. Both of them own a restaurant. PAST MEDICAL/SURGICAL HISTORY: 1. Hypertension. 2. Zoster. 3. Cholecystectomy. MEDICATIONS: Please see medication reconciliation. ALLERGIES: No known drug allergies. SOCIAL HISTORY: She does not drink. She does not smoke. She does use marijuana mainly edibles. FAMILY HISTORY: Reviewed and noncontributory. REVIEW OF SYSTEMS: 10-point review of systems is conducted and is negative, except per HPI. PHYSICAL EXAM: VITAL SIGNS: Blood pressure 180/94, heart rate 95, respiration rate 12, saturating at 98% on room air, temperature is 36.4. GENERAL: The patient is a pleasant female who appears somewhat uncomfortable lying on her side in bed. HEENT: Shows to be normocephalic, atraumatic card. CARDIOVASCULAR: Regular rate and rhythm. No murmurs, rubs, or gallops. PULMONARY: Lungs clear to auscultation bilaterally. ABDOMEN: Soft, mildly tender to palpation diffusely. No guarding. No rebound. Non-peritoneal. SKIN : No rash. : No Matthews. NEUROLOGIC: Shows her to be alert and oriented x3. She is moving all extremities. PSYCHIATRIC: Exam shows normal mood and affect. LABORATORY: MCV is 109. INR is 0.9. bicarb is 18. AST is 290 ALT is 198, total bilirubin is 1.7. Lipase is 527 vitamin B12 is pending. DATA: 1. Discussed this with Dr. Jules. 2. I reviewed all of her imaging as above. 3. I reviewed her abdominal ultrasound, which shows mildly dilated ducts consistent with post cholecystectomy. IMPRESSION/PLAN: 1. Persistent nausea vomiting with some mild diarrhea: Differential, includes marijuana hyperemesis, gastric outlet obstruction, gastroparesis. Also associated with some diarrhea, previously dilated stomach on imaging, mild transaminitis. I have discussed this with Dr. Mckinnon who will consult, consider endoscopy. Otherwise, we will provide supportive care, including intravenous fluids, antiemetics, and pain control. 2. Transaminitis: I have ordered hepatitis serologies. We will recheck tomorrow. 3. Macrocytosis: This is quite pronounced. We will check a B12. She is notably not anemic. Will recheck this tomorrow. 4. Metabolic acidosis: This is due to poor p.o. intake and likely ketoacidosis. This should improve with intravenous fluids. 5. Hypertension: Will hold her lisinopril for now, but likely restart soon. 6. Diarrhea: Check gastrointestinal GI pathogen panel. /[id number]/MODL MTDD
[2018-02-07] MEDS: hydrALAZINE 10 MG TAB PO PRN (19:34)
[2018-02-07] MEDS ORDERED: PANTOPRAZOLE SODIUM 40 MG VIAL IVP ONE (21:54)
[2018-02-08 02:46] LABS: HEPATITIS B SURFACE ANTIGEN NEGATIVE (NEGATIVE)
[2018-02-08 03:04] LABS: HEPATITIS A ANTIBODY IGM (BCH) NEGATIVE (NEGATIVE); HEPATITIS B CORE AB IGM NEGATIVE (NEGATIVE); HEPATITIS C ANTIBODY TOTAL NEGATIVE (NEGATIVE)
[2018-02-08 05:23] LABS: PLATELET COUNT 158 10^3/uL (150-400)
[2018-02-08] MEDS ORDERED: LR 1,000 ML IV ONE (08:05)
--- NOTE | 2018-02-08 08:24 | GCON ---
DATE OF CONSULTATION: 02/07/2018 REFERRING PHYSICIAN: Marc Judge MD REASON FOR CONSULTATION: Nausea, vomiting, diarrhea, epigastric/right upper quadrant abdominal pain. HISTORY OF PRESENT ILLNESS: The patient is a 62-year-old female with a history of a recent cholecystectomy, hypertension who presented to [facility] with the complaint of uncontrolled nausea and vomiting as well as diarrhea. The patient states she has had at least 8 intermittent episodes of nausea and vomiting as well as diarrhea. She also complains of a burning sensation in the mid epigastrium/right upper quadrant. This sensation can last hours. She denies any exacerbating factors for her symptoms but states a hot shower makes her symptoms better. She was initially seen at [facility] and due to a large gallstone had a cholecystectomy. However, this did not help her symptoms. She has had some weight loss in the last several months. She has had an extensive workup for her symptoms including an MRCP which may have revealed a distal CBD stricture. I ahve not been able to obtain this report yet. She has had significant blood work with the last several blood works at [facility] showing increased AST, ALT with a preserved alkaline phosphatase. She has had an ultrasound, a CT scan as well as a small bowel followthrough, which have been unrevealing. She has been started on hyoscyamine as well as pantoprazole, which have not helped her symptoms. I am being asked by Dr. Judge to evaluate the patient in consultation regarding her episodes of nausea, vomiting, diarrhea, and abdominal discomfort. PAST MEDICAL HISTORY: Hypertension, Varicella zoster. PAST SURGICAL HISTORY: Cholecystectomy. ALLERGIES: NKDA. MEDICATIONS: Pantoprazole to 40 mg a day, lisinopril 10 mg a day. FAMILY HISTORY: No history of colon cancer. SOCIAL HISTORY: Social alcohol. Positive marijuana. . REVIEW OF SYSTEMS: A 14-point comprehensive review of systems was asked. Pertinent positives and negatives per HPI. PHYSICAL EXAMINATION: VITALS: Blood pressure 180/94, pulse 96, respirations 12 , temperature 36.3. GENERAL: Awake, alert, oriented x3. No distress. HEENT: Anicteric. Moist mucosa. NECK: No JVD. CARDIOVASCULAR: Regular rate and rhythm. Positive S1. No murmurs, rubs or gallops appreciated. LUNGS: Clear to auscultation Bilaterally without wheezes, rales, rhonchi. ABDOMEN: Soft, tender in the mid epigastrium. No guarding, no rebound. Positive bowel sounds. EXTREMITIES: No clubbing, cyanosis, or edema. NEUROLOGIC: 2-12 are grossly intact. PSYCH: Normal affect. MUSCULOSKELETAL: No obvious joint effusions. SKIN: No rash, no icterus. BLOOD WORK: Total bilirubin 1.78, AST 290, ALT 198, alk phos 85, lipase 527. ULTRASOUND: Dilated common bile duct at 1.2 cm without choledocholithiasis. ASSESSMENT AND PLAN: 1. Nausea and vomiting- with diarrhea and epigastric/right upper quadrant abdominal discomfort. Had a recent cholecystectomy, and on imaging, there is significantly dilated bile duct. Also has increased liver function tests. The dilatation is more than I would normally expect with the recent cholecystectomy , and with the increased LFTs, need to make certain if we are missing a biliary cause. She did have a prior MRCP which may have shown a distal CBD stricture. Her complaints of diarrhea are unusual in marijuana-induced hyperemesis syndrome. At this time, I recommend to proceed with upper endoscopy with endoscopic ultrasound to evaluate the biliary tree. If there are signs of obstruction, would recommend to proceed with ERCP. The risks, benefits, and alternatives of the procedure were reviewed with the patient. The risks of infection, bleeding, perforation, sedation, pancreatitis were discussed. All questions answered and informed consent was obtained. Thank you very much for this consultation. /[id number]/MODL MTDD
--- NOTE | 2018-02-08 09:06 | PDANEPAE ---
ANE History of Present Illness EGD, possible ERCP ANE Past Medical History - Cardiovascular History Hx Hypertension: Yes - Pulmonary History Hx Oxygen in Use at Home: No Hx Sleep Apnea: No Sleep Apnea Screening Result - Last Documented: Negative - Endocrine History Hx Diabetes: No - Chronic Pain History Chronic Pain: No ANE Review of Systems Review of systems is: negative Review of Systems: - Exercise capacity Exercise capacity: >=4 METS ANE Patient History - Allergies Allergies/Adverse Reactions: No Known Allergies Allergy (Verified 09/28/17 17:52) - Home Medications Home medications: home medication list seen and reviewed Home Medications: Lisinopril [Zestril 10 mg (*)] 10 mg PO DAILY 01/19/18 [Last Taken 01/18/18] - NPO status NPO Since - Liquids (Date): 02/08/18 NPO Since - Liquids (Time): 00:00 NPO Since - Solids (Date): 02/08/18 NPO Since - Solids (Time): 00:00 - Anes Hx Anes Hx: post operative nausea - Smoking Hx Smoking Status: Never smoked Marijuana use: Yes - Family Anes Hx Family Anes Hx: none ANE Labs/Vital Signs - Labs Result Diagrams: 02/08/18 04:44 02/08/18 04:44 - Vital Signs Vital Signs: reviewed preoperatively; see RN documention for details Blood Pressure: 153/89 Heart Rate: 74 Respiratory Rate: 18 O2 Sat (%): 95 Height: 157.48 cm Weight: 43.953 kg ANE Physical Exam - Airway Neck exam: FROM Mallampati Score: Class 1 Mouth exam: normal dental/mouth exam - Pulmonary Pulmonary: no respiratory distress - Cardiovascular Cardiovascular: regular rate and rhythym - ASA Status ASA Status: II ANE Anesthesia Plan Anesthesia Plan: general endotracheal anesthesia
[2018-02-08] MEDS ORDERED: GLUCAGON HCL 1 MG VIAL ONE (09:18)
[2018-02-08] MEDS ORDERED: IOTHALAMATE MEG (CONRAY) 50 ML VIAL IV ONE (09:18)
[2018-02-08] MEDS ORDERED: MIDAZOLAM 2 MG/2 ML VIAL IVP ONE (09:21)
[2018-02-08] MEDS ORDERED: ONDANSETRON 4 MG/2 ML VIAL ONE (09:23)
[2018-02-08] MEDS ORDERED: DEXAMETHASONE 4 MG/ML VIAL ONE (09:23)
[2018-02-08] MEDS ORDERED: fentaNYL 100 MCG/2 ML INJ ONE (09:23)
[2018-02-08] MEDS ORDERED: LIDOCAINE 2% 100 MG/5 ML SYR ONE (09:23)
[2018-02-08] MEDS ORDERED: PROPOFOL 200 MG/20 ML VIAL ONE (09:23)
[2018-02-08] MEDS ORDERED: ROCURONIUM 50 MG/5 ML VIAL ONE (09:24)
[2018-02-08] MEDS ORDERED: PROMETHAZINE HCL 25 MG/ML INJ IVP PRN (09:51)
[2018-02-08] MEDS ORDERED: DEXAMETHASONE 4 MG/ML VIAL IVP PRN (09:51)
[2018-02-08] MEDS ORDERED: HYDROmorphONE/DILAUDID 2 MG/ML INJ IVP PRN (09:51)
[2018-02-08] MEDS ORDERED: fentaNYL 100 MCG/2 ML INJ IVP PRN (09:51)
[2018-02-08] MEDS ORDERED: ONDANSETRON 4 MG/2 ML VIAL IVP PRN (09:51)
[2018-02-08] MEDS ORDERED: NALOXONE HCL 0.4 MG/ML INJ IVP PRN (09:51)
[2018-02-08] MEDS ORDERED: MEPERIDINE 25 MG/0.5 ML AMP IVP PRN (09:51)
[2018-02-08] MEDS ORDERED: oxyCODONE IR 5 MG TAB PO PRN (09:51)
[2018-02-08] MEDS ORDERED: ACETAMINOPHEN 500 MG TAB PO PRN (09:51)
[2018-02-08] MEDS ORDERED: HYDROCODONE/APAP 5/325 TAB PO PRN (09:51)
--- NOTE | 2018-02-08 09:54 | POSTANESTH ---
Post Anesthetic Evaluation Cardiovascular Status: Similar to Pre-Op Cond, Tx Hyper/Hypo-tension Respiratory Status: Normal, Stable, Similar to Pre-op Cond. Level of Consciousness/Mental Status: Can Participate in Eval, Mildly Sleepy, Arousable Pain Control: Adequate, Prn Tx Ordered Nausea/Vomiting Control: Adequate, Prn Tx Ordered Complications Possibly Related to Anesthesia: None Noted
[2018-02-08] MEDS ORDERED: INDOMETHACIN 50 MG SUPP PR ONE (10:06)
[2018-02-08] MEDS ORDERED: LABETALOL HCL 20 MG/4 ML INJ IVP ONE (11:32)
[2018-02-08] MEDS: LABETALOL HCL 20 MG/4 ML INJ IVP PRN ×4 (11:34→12:18)
[2018-02-08] MEDS: hydrALAZINE 10 MG TAB PO PRN (13:06)
--- NOTE | 2018-02-08 13:40 | HOSPPROG ---
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 - discussed with Dr Mckinnon - we suspect that the ampulla may be in a diverticula causing compression of the CBD - he was unable to get biliary access during ERCP - plan dual procedure with IR and Dr Mckinnon tomorrow to place CBD stent # macrocytosis - will need outpatient f/u Subjective: s/p ERCP today; no N/V/abd pain today; discussed with Dr Mckinnon, patient and Objective: Vital Signs Temp Pulse Resp BP Pulse Ox 36.7 C 74 16 172/116 H 94 02/08/18 12:30 02/08/18 09:21 02/08/18 12:40 02/08/18 13:06 02/08/18 12:40 Microbiology 02/07/18 16:35 Gastrointestinal Tract Panel (PCR) - Final Stool No Organism Detected By Pcr Laboratory Results 02/08/18 04:44 02/08/18 04:44 02/07/18 02/08/18 02/09/18 05:59 05:59 05:59 Intake Total 1200 1020 Output Total 0 Balance 1200 1020 PT 12.8 SEC (12.0-15.0) 02/07/18 12:40 INR 0.94 (0.83-1.16) 02/07/18 12:40 - Time Spent With Patient Time Spent with Patient: greater than 35 minutes Time Spent with Patient: Greater than 35 minutes spent on this patients care, greater than 50% of time spent counseling, educating, and coordinating care regarding the above mentioned plan. - Physical Exam Constitutional: no apparent distress, appears nourished Eyes: anicteric sclera Ears, Nose, Mouth, Throat: hearing normal Cardiovascular: No edema Respiratory: no respiratory distress Gastrointestinal: No distension Genitourinary: No noriega in urethra Skin: normal color Musculoskeletal: full muscle strength Neurologic: AAOx3 Psychiatric: not anxious ICD10 Worksheet Patient Problems: Problems Problem Status Onset Abdominal pain Acute Vomiting Acute Elevated troponin Acute Hyponatremia Acute Epigastric pain Acute Dehydration Acute Vomiting and diarrhea Acute Transaminitis Acute Elevated lipase Acute
--- NOTE | 2018-02-08 13:51 | ASMTCMCOM ---
CM Note CM Note Notes: Chart reviewed for discharge planning purposes. 62 year old female admitted for N/V/D sp cholecystectomy,CP. She will need repeat tomorrow with IR per chart. No current needs identified. CM available should needs arise. Plan: Likely home with family support when medically cleared for discharge to home. Date Signed: 02/08/2018 01:50 PM Electronically Signed By:Ida Hernandez RN
[2018-02-08] MEDS: PANTOPRAZOLE SODIUM 40 MG TAB PO SCH (14:56)
[2018-02-08] MEDS: LISINOPRIL 10 MG TAB PO SCH (14:56)
--- NOTE | 2018-02-08 15:20 | PDMN ---
Medical Necessity Medical necessity: MCG: pt presented with N/V/ diarrhea, abd pain. status changed to INPT 02/08/18 for ongoing med nec care > 2 MN - unable to access - poss distal CBD stricture further eval and tx needed.
--- NOTE | 2018-02-08 17:20 | GIREPORT ---
[facility] Surgical Services - Endoscopy Department Patient Name: Madina Gilbert Procedure Date: 02/08/2018 9:28 AM Patient Type: Inpatient Attending MD/ ER Physician: Kenton Mckinnon MD Procedure: Upper EUS Indications: Common bile duct dilation (acquired) seen on MRCP, Elevated liver enzym es, Epigastric abdominal pain, Diarrhea, Weight loss Patient Profile: 62 year old female presents for evaluation of intermittent epigastric p ain, diarrhea, weight loss, elevated liver function tests, and abnormal imag ing. Providers: Kenton Mckinnon MD Medicines: General Anesthesia Complications: No immediate complications. Estimated blood loss: Minimal. Description of Procedure: After obtaining informed consent, the endoscope was passed under direct vision. Throughout the procedure, the patient's blood pressure, pulse, and oxygen saturations were monitored continuously. The Endosonoscope was introduced through the mouth, and advanced to the second part of duoden um. The Endosonoscope was introduced through the mouth, and advanced to the second part of duodenum. The esophagus, stomach, and duodenum were visualized endosonographically. The upper EUS was accomplished without difficulty. The patient tolerated the procedure well. Findings: Endoscopic Finding : The Z-line was irregular with a tongue of columnar appearing epithelium extending 1cm into the tubular esophagus. Biopsies were taken with a co ld forceps for histology. A hiatal hernia was present. Patchy mildly erythematous mucosa was found in the entire examined stom ach. Biopsies were taken with a cold forceps for histology. The examined duodenum was normal. Biopsies were taken with a cold force ps for histology. Endosonographic Finding : There was dilation in the common bile duct which measured up to 12 mm. No sludge or debris noted. There was a distal CBD stricture. The pancreati c duct was seen merging with the CBD and no mass lesion seen. Pancreatic parenchymal abnormalities were noted in the entire pancreas. These consisted of hyperechoic foci. There was no sign of significant endosonographic abnormality in the visualized portion of the liver. No masses were identified. No lymphadenopathy seen. Estimated Blood Loss: Estimated blood loss was minimal. Post Op Diagnosis: - Z-line irregular. Biopsied. - Hiatal hernia. - Erythematous mucosa in the stomach. Biopsied. - Normal examined duodenum. Biopsied. - There was dilation in the common bile duct which measured up to 12 mm . - Pancreatic parenchymal abnormalities consisting of hyperechoic foci w ere noted in the entire pancreas. - There was no evidence of significant pathology in the visualized port ion of the liver. - Etiology? Dilated CBD with stricture at distal CBD. Recommendation: - Perform an ERCP today. - Await pathology results. - Thank you for allowing me to participate in the care of your patient. Attending Participation: I personally performed the entire procedure. Kenton Mckinnon MD Kenton Mckinnon MD 02/08/2018 5:19:42 PM This report has been signed electronicallyKenton Mckinnon MD Number of Addenda: 0 Note Initiated On: 02/08/2018 9:28 AM [email or web address]
[2018-02-08] MEDS: ONDANSETRON 4 MG/2 ML VIAL IVP PRN (18:41)
[2018-02-08] MEDS ORDERED: ZOLPIDEM TARTRATE 5 MG TAB PO PRN (19:39)
[2018-02-08] MEDS: NS 1,000 ML IV SCH (20:44)
--- NOTE | 2018-02-09 05:00 | GPN ---
DATE OF PROCEDURE: 02/08/2018 PROCEDURE: Attempted endoscopic retrograde cholangiopancreatography. INDICATION: The patient is a 62-year-old female who presents for evaluation of abnormal imaging with a distal CBD stricture as well as increased liver function tests. CONSENT: Risks, benefits, and alternatives of the procedure were discussed in great detail with the patient. Risk of infection, bleeding, perforation, sedation, and pancreatitis were discussed. All questions answered. Informed consent was obtained. MEDICATIONS: General anesthesia. Please see anesthesia record for details. ESTIMATED BLOOD LOSS: Insignificant. ENDOSCOPIC RETROGRADE CHOLANGIOPANCREATOGRAPHY EXAMINATION: The Olympus duodenoscope was introduced into the mouth and advanced to the second portion of the duodenum. 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 About an hour was spent probing this area, but the ampulla could not be visualized. A pediatric biopsy forceps was then utilized, and tissue was grabbed and pulled out of the diverticulum to try to visualize the ampulla which was still not possible. Another tic was seen proximal to this area and this was also closely examined. I spent over 1 hour looking for the ampulla and could not. I suspect it is hidden in a diverticulum. RECOMMENDATIONS: Recommend a rendezvous procedure tomorrow. /[id number]/MODL MTDD
[2018-02-09 05:06] LABS: PLATELET COUNT 141 10^3/uL (150-400)
[2018-02-09] MEDS: LISINOPRIL 10 MG TAB PO SCH (09:19)
[2018-02-09] MEDS: PANTOPRAZOLE SODIUM 40 MG TAB PO SCH (09:19)
[2018-02-09] MEDS: ESCITALOPRAM OXALATE 10 MG TAB PO SCH (09:19)
--- NOTE | 2018-02-09 10:23 | SOAPPROG ---
SOAP Progress Note Assessment/Plan: Assessment: Nausea and vomiting Abd pain better Elevated LFT Dilated CBD unsuccessful ERCP yesterday due to anatomy Plan:ERCP with IR today 02/09/18 10:21 Subjective: CC Abd pain n/v Pain improved with pain medication Objective: Vital Signs Temp Pulse Resp BP Pulse Ox 36.8 C 62 16 159/77 H 94 02/09/18 08:27 02/09/18 08:27 02/09/18 08:27 02/09/18 08:27 02/09/18 08:27 Laboratory Results 02/09/18 04:34 02/09/18 04:34 02/08/18 02/09/18 02/10/18 05:59 05:59 05:59 Intake Total 1407 Balance 1407 PT 12.8 SEC (12.0-15.0) 02/07/18 12:40 INR 0.94 (0.83-1.16) 02/07/18 12:40 Physical Exam - Physical Exam General Appearance: no apparent distress Respiratory: lungs clear Cardiac/Chest: regular rate, rhythm Abdomen: non-tender, soft ICD10 Worksheet Patient Problems: Problems Problem Status Onset Elevated lipase Acute Transaminitis Acute Vomiting and diarrhea Acute Abdominal pain Acute Dehydration Acute Elevated troponin Acute Epigastric pain Acute Hyponatremia Acute Vomiting Acute
[2018-02-09] MEDS ORDERED: ceFAZolin 2 GM/DEXTROSE 100 ML IV ONE (10:40)
[2018-02-09] MEDS ORDERED: GLUCAGON HCL 1 MG VIAL IVP PRN (10:40)
[2018-02-09] MEDS ORDERED: PROTAMINE SULFATE 50 MG/5 ML VIAL IVP PRN (10:40)
[2018-02-09] MEDS ORDERED: HEPARIN 10,000 UNIT/10 ML MDV (1,000 UNIT/ML) IVP PRN (10:40)
[2018-02-09] MEDS ORDERED: NALOXONE HCL 0.4 MG/ML INJ IVP PRN ×2 (10:40→17:40)
[2018-02-09] MEDS ORDERED: FLUMAZENIL 0.5 MG/5 ML MDV IVP PRN (10:40)
[2018-02-09] MEDS ORDERED: fentaNYL 100 MCG/2 ML INJ IVP PRN ×2 (10:40→17:40)
[2018-02-09] MEDS ORDERED: ALTEPLASE 2 MG VIAL IVP PRN (10:40)
[2018-02-09] MEDS ORDERED: MIDAZOLAM 2 MG/2 ML VIAL IVP PRN (10:40)
[2018-02-09] MEDS ORDERED: NS 1,000 ML IV SCH (10:45)
[2018-02-09] MEDS ORDERED: LIDOCAINE 1% 300 MG/30 ML SDV ONE (11:06)
[2018-02-09] MEDS ORDERED: IOPAMIDOL (ISOVUE-300) 100 ML BTL ONE (11:07)
--- NOTE | 2018-02-09 12:41 | PDRADPN ---
Radiology Procedure Note Date of Procedure: 02/09/18 Radiologist: Lauren Bunn Anesthesia: IV Sedation Pre-op Diagnosis: ATTEPMTED ERCP FOR BILIARY STRICTURE Post-op Diagnosis: HIGH GRADE AMPULARY STRICUTRE, SHORT Indication: RENDEZVOUS WITH ENDOSCOPY Procedure: PTC ACCESS WITH WIRE Finding(s): RIGHT DISTAL CBD/AMPULARY STRICUTURE C/W ERCP FINDINGS. Inf/Abcess present in the surg proc area at time of surgery?: No
[2018-02-09] MEDS: ONDANSETRON 4 MG/2 ML VIAL IVP PRN ×2 (13:15→19:04)
[2018-02-09] MEDS ORDERED: HYDROmorphONE/DILAUDID 1 MG/ML INJ IVP ONE (13:41)
[2018-02-09] MEDS ORDERED: oxyCODONE IR 5 MG TAB PO PRN (15:32)
--- NOTE | 2018-02-09 15:41 | HOSPPROG ---
Hospitalist Progress Note Assessment/Plan: 62yo F with HTN here with recurrent vomiting and diarrhea found to have transaminitis. This is my first encounter with the patient, chart reviewed. 1. Abnormal LFTs: Transaminitis + elevated bili. - ERCP showed CBD/ampullary stricture but unable to intervene as ampulla may be in diverticula causing compression of CBD - ERCP w/IR today - Monitor daily 2. Acute abdominal pain associated with n/v/d: Related to above - Switch IV morphine to dilaudid PRN, add oxycodone if able to take PO 3. Hypertension: Not well controlled, suspect driven by pain - Continue home lisinopril - Hydralazine PO PRN available for SBP>180 4. Macrocytosis: Rather profound. Wasn't anemic on admission - B12 normal - Check folate, TSH, hemolysis labs VTE ppx: SCDs with procedures Diet: NPO until ERCP, then advance as tolerates Dispo: Remain inpatient until ERCP, LFTs better, tolerating PO Subjective: Lots of pain after IR portion of procedure this AM. Morphine not working very well, dilaudid better. Some nausea, no vomiting or diarrhea. No fevers Objective: Vital Signs Temp Pulse Resp BP Pulse Ox 36.7 C 71 18 149/78 H 96 02/09/18 14:39 02/09/18 14:39 02/09/18 14:39 02/09/18 14:39 02/09/18 14:39 Laboratory Results 02/09/18 04:34 02/09/18 04:34 02/08/18 02/09/18 02/10/18 05:59 05:59 05:59 Intake Total 1407 200 Balance 1407 200 PT 12.8 SEC (12.0-15.0) 02/07/18 12:40 INR 0.94 (0.83-1.16) 02/07/18 12:40 - Physical Exam Constitutional: no apparent distress, appears nourished, not in pain Eyes: PERRL, anicteric sclera, EOMI Ears, Nose, Mouth, Throat: moist mucous membranes, hearing normal, ears appear normal, no oral mucosal ulcers Cardiovascular: regular rate and rhythym, no murmur, rub, or gallop, No edema Respiratory: no respiratory distress, no rales or rhonchi, clear to auscultation Gastrointestinal: normoactive bowel sounds, no palpable masses, tenderness (RUQ) , No rebound, No distension Genitourinary: no bladder fullness, no bladder tenderness, no renal bruits Skin: no rashes or abrasions, no fluctuance, no induration Musculoskeletal: full muscle strength, no muscle tenderness, normal joint ROM Neurologic: AAOx3, sensation intact bilaterally Psychiatric: interacting appropriately, not anxious, not encephalopathic, thought process linear ICD10 Worksheet Patient Problems: Problems Problem Status Onset Elevated lipase Acute Transaminitis Acute Vomiting and diarrhea Acute Abdominal pain Acute Dehydration Acute Elevated troponin Acute Epigastric pain Acute Hyponatremia Acute Vomiting Acute
[2018-02-09] MEDS: HYDROmorphONE/DILAUDID 1 MG/ML INJ IVP PRN (15:45)
[2018-02-09] MEDS ORDERED: LR 1,000 ML IV ONE (16:11)
[2018-02-09] MEDS ORDERED: GLUCAGON HCL 1 MG VIAL ONE (16:54)
[2018-02-09] MEDS ORDERED: IOTHALAMATE MEG (CONRAY) 50 ML VIAL IV ONE (16:54)
[2018-02-09] MEDS ORDERED: MIDAZOLAM 2 MG/2 ML VIAL IVP ONE (16:55)
--- NOTE | 2018-02-09 16:57 | PDANEPAE ---
ANE History of Present Illness 62 year old female for ERCP ANE Past Medical History - Cardiovascular History Hx Hypertension: Yes Hx Arrhythmias: No Hx Chest Pain: No Hx Coronary Artery / Peripheral Vascular Disease: No Hx CHF / Valvular Disease: No Hx Palpitations: No - Pulmonary History Hx COPD: No Hx Asthma/Reactive Airway Disease: No Hx Recent Upper Respiratory Infection: No Hx Oxygen in Use at Home: No Hx Sleep Apnea: No Sleep Apnea Screening Result - Last Documented: Negative - Endocrine History Hx Diabetes: No - Chronic Pain History Chronic Pain: No ANE Review of Systems Review of systems is: negative Review of Systems: ANE Patient History - Allergies Allergies/Adverse Reactions: No Known Allergies Allergy (Verified 09/28/17 17:52) - Home Medications Home Medications: Lisinopril [Zestril 10 mg (*)] 10 mg PO DAILY 01/19/18 [Last Taken 01/18/18] Escitalopram Oxalate [Lexapro] 5 mg PO DAILY 02/08/18 [Last Taken Unknown] - NPO status NPO Since - Liquids (Date): 02/08/18 NPO Since - Liquids (Time): 00:00 NPO Since - Solids (Date): 02/08/18 NPO Since - Solids (Time): 00:00 - Smoking Hx Smoking Status: Never smoked ANE Labs/Vital Signs - Labs Result Diagrams: 02/09/18 04:34 02/09/18 04:34 - Vital Signs Blood Pressure: 129/72 Heart Rate: 71 Respiratory Rate: 18 O2 Sat (%): 95 Height: 157.48 cm Weight: 43.953 kg ANE Physical Exam - Airway Neck exam: FROM Mallampati Score: Class 2 Mouth exam: normal dental/mouth exam - Pulmonary Pulmonary: no respiratory distress - Cardiovascular Cardiovascular: regular rate and rhythym - ASA Status ASA Status: II ANE Anesthesia Plan Anesthesia Plan: general endotracheal anesthesia
[2018-02-09] MEDS ORDERED: PROPOFOL/EMULSION 500 MG/50 ML BOTTLE IV ONE (16:59)
[2018-02-09] MEDS ORDERED: fentaNYL 100 MCG/2 ML INJ ONE (17:03)
[2018-02-09] MEDS ORDERED: INDOMETHACIN 50 MG SUPP PR ONE (17:14)
[2018-02-09] MEDS ORDERED: ALBUTEROL 3 ML DEYVIAL IH PRN (17:40)
[2018-02-09] MEDS ORDERED: LABETALOL HCL 20 MG/4 ML INJ IVP PRN (17:40)
--- NOTE | 2018-02-09 18:15 | GIREPORT ---
[facility] Surgical Services - Endoscopy Department Patient Name: Madina Gilbert Procedure Date: 02/09/2018 5:12 PM Patient Type: Inpatient Attending MD/ ER Physician: Kenton Mckinnon MD Procedure: ERCP Indications: Abdominal pain of suspected biliary origin, Abnormal abdominal MRI, Cielo vated liver enzymes Patient Profile: 62 year old female presents for evaluation of RUQ/epigastric abdominal pain, elevated liver enzymes, and abnormal imagin. Providers: Kenton Mckinnon MD Medicines: General Anesthesia Complications: No immediate complications. Estimated blood loss: Minimal. Description of Procedure: After obtaining informed consent, the scope was passed under direct vis ion. Throughout the procedure, the patient's blood pressure, pulse, and oxyg en saturations were monitored continuously. The Duodenalscope was introduc ed through the mouth, and advanced to the duodenum and used to inject cont rast into the bile duct. The ERCP was accomplished without difficulty. The patient tolerated the procedure well. Findings: A television camera operator film of the abdomen was obtained. Surgical clips, consistent wi th a previous cholecystectomy, were seen in the area of the right upper quad rant of the abdomen. The esophagus was successfully intubated under direct vision. The scope was advanced to a normal major papilla in the descend ing duodenum without detailed examination of the pharynx, larynx and associ ated structures, and upper GI tract. The upper GI tract was grossly normal. Preparations were made for a rendezvous maneuver. An echoendoscope was used for examination. The bile duct was punctured using an appropriately siz ed needle under endosonographic and radiologic guidance through a transduo denal approach. The bile duct was injected with contrast, and a cholangiogram was obtained under fluoroscopy. A guidewire was passed anterograde through the needle. The guidewire was grabbed using a snare. Over the guidewire, th e bile duct was deeply cannulated with the short nose sphincterotome. Con trast was injected, and a new cholangiogram was obtained under fluoroscopy. T he lower third of the main bile duct contained a single mild stenosis. A 9 mm biliary sphincterotomy was made with a traction (standard) sphincteroto me using pure cut current. The sphincterotomy oozed blood. The biliary sully e was swept with a 12 mm balloon starting at the bifurcation. Sludge was swep t from the duct. Estimated Blood Loss: Estimated blood loss was minimal. Post Op Diagnosis: - Biliary rendezvous performed. - A single mild biliary stricture was found in the lower third of the m ain bile duct. The stricture was benign appearing and was unroofed with the sphincterotomy. - A biliary sphincterotomy was performed. - The biliary tree was swept and sludge was found. Recommendation: - [facility] for [facility]. - NPO. - Continue present medications. - Thank you for allowing me to participate in the care of your patient. Attending Participation: I personally performed the entire procedure. Kenton Mckinnon MD Kenton Mckinnon MD 02/09/2018 6:14:24 PM This report has been signed electronicallyKenton Mckinnon MD Number of Addenda: 0 Note Initiated On: 02/09/2018 5:12 PM [email or web address]
[2018-02-09] MEDS: PROMETHAZINE HCL 25 MG/ML INJ IVP PRN (23:17)
[2018-02-10] MEDS: ONDANSETRON 4 MG/2 ML VIAL IVP PRN ×4 (05:47→21:14)
[2018-02-10] MEDS: HYDROmorphONE/DILAUDID 1 MG/ML INJ IVP PRN ×7 (05:52→23:08)
[2018-02-10] MEDS: PROMETHAZINE HCL 25 MG/ML INJ IVP PRN (08:47)
[2018-02-10] MEDS: ESCITALOPRAM OXALATE 10 MG TAB PO SCH (08:51)
[2018-02-10] MEDS: LISINOPRIL 10 MG TAB PO SCH (08:52)
[2018-02-10] MEDS: PANTOPRAZOLE SODIUM 40 MG TAB PO SCH (08:52)
--- NOTE | 2018-02-10 10:21 | SOAPPROG ---
SOAP Progress Note Assessment/Plan: Assessment: Nausea and vomiting Abd pain better worse today concerning for post ERCP pancreatitis vs edema post ES Significant increase in LFT s/p ERCP with ES for CBD stricture Plan:Check lipase Please increase IVF Keep NPO but ok for sips and chips 02/10/18 10:18 Subjective: CC abd potter Pt noted significant abd pain this AM on right side with N/V. No melena Objective: Vital Signs Temp Pulse Resp BP Pulse Ox 36.6 C 88 16 155/88 H 94 02/10/18 08:25 02/10/18 08:25 02/10/18 08:25 02/10/18 08:52 02/10/18 08:25 Laboratory Results 02/10/18 04:48 02/10/18 04:48 02/09/18 02/10/18 02/11/18 05:59 05:59 05:59 Intake Total 1407 980 Output Total 1 Balance 1407 979 PT 12.8 SEC (12.0-15.0) 02/07/18 12:40 INR 0.94 (0.83-1.16) 02/07/18 12:40 Physical Exam - Physical Exam General Appearance: alert Respiratory: lungs clear Cardiac/Chest: regular rate, rhythm Abdomen: soft (tender RUQ) ICD10 Worksheet Patient Problems: Problems Problem Status Onset Elevated lipase Acute Transaminitis Acute Vomiting and diarrhea Acute Abdominal pain Acute Dehydration Acute Elevated troponin Acute Epigastric pain Acute Hyponatremia Acute Vomiting Acute
[2018-02-10] MEDS: hydrALAZINE 10 MG TAB PO PRN ×2 (11:54→16:08)
[2018-02-10] MEDS ORDERED: POTASSIUM Cl (KCl) 20 MEQ in LR 1,000 ML IV SCH (15:30)
--- NOTE | 2018-02-10 16:01 | HOSPPROG ---
Hospitalist Progress Note Assessment/Plan: 62yo F with HTN here with recurrent vomiting and diarrhea found to have transaminitis. 1. Acute pancreatitis: ERCP-induced - Supportive care with IVF, pain control, bowel rest 2. Abnormal LFTs: Worsened. Initially d/t biliary stricture but now likely edema /inflammation from ERCP - Repeat in AM, hold on additional imaging/antibiotics 3. Biliary stricture: s/p sphincterotomy and sweep with biliary sludge. 4. HTN: BP not controlled. Will increase lisinopril. Keep hydral available for SBP>180 5. Macrocytosis: Rather profound. Wasn't anemic on admission - B12, folate, TSH normal; hemolysis labs pending VTE ppx: SCDs Diet: clears, can eat crackers Dispo: Remain inpatient for management of acute pancreatitis. Dc when pain better, lfts improving, tolerating PO. Subjective: Much more pain this AM. Some nausea, no vomiting or diarrhea. No fevers. Objective: Vital Signs Temp Pulse Resp BP Pulse Ox 36.8 C 92 18 185/111 H 97 02/10/18 15:53 02/10/18 15:53 02/10/18 15:53 02/10/18 15:53 02/10/18 15:53 Laboratory Results 02/10/18 04:48 02/10/18 04:48 02/09/18 02/10/18 02/11/18 05:59 05:59 05:59 Intake Total 1407 980 Output Total 1 Balance 1407 979 PT 12.8 SEC (12.0-15.0) 02/07/18 12:40 INR 0.94 (0.83-1.16) 02/07/18 12:40 - Physical Exam Constitutional: appears nourished, uncomfortable Eyes: PERRL, anicteric sclera, EOMI Ears, Nose, Mouth, Throat: moist mucous membranes, hearing normal, ears appear normal, no oral mucosal ulcers Cardiovascular: regular rate and rhythym, no murmur, rub, or gallop, No edema Respiratory: no respiratory distress, no rales or rhonchi, clear to auscultation Gastrointestinal: normoactive bowel sounds, tenderness (upper abdomen), guarding , No no palpable masses, No distension Genitourinary: no bladder fullness, no bladder tenderness, no renal bruits Skin: no rashes or abrasions, no fluctuance, no induration Musculoskeletal: full muscle strength, no muscle tenderness, normal joint ROM Neurologic: AAOx3, sensation intact bilaterally Psychiatric: interacting appropriately, not anxious, not encephalopathic, thought process linear ICD10 Worksheet Patient Problems: Problems Problem Status Onset Elevated lipase Acute Transaminitis Acute Vomiting and diarrhea Acute Abdominal pain Acute Dehydration Acute Elevated troponin Acute Epigastric pain Acute Hyponatremia Acute Vomiting Acute
--- NOTE | 2018-02-10 16:54 | ASMTCMCOM ---
CM Note CM Note Notes: Plan of care reviewed in rounds. Patient still having persistent N/V and may have pancreatitis. CM to follow for needs. Plan: TBD Date Signed: 02/10/2018 04:53 PM Electronically Signed By:Ida Hernandez RN
[2018-02-10] MEDS ORDERED: LISINOPRIL 10 MG TAB PO SCH (18:31)
[2018-02-11] MEDS: ONDANSETRON 4 MG/2 ML VIAL IVP PRN (04:16)
[2018-02-11] MEDS: HYDROmorphONE/DILAUDID 1 MG/ML INJ IVP PRN (04:16)
[2018-02-11] MEDS: hydrALAZINE 10 MG TAB PO PRN (04:17)
[2018-02-11] MEDS: ESCITALOPRAM OXALATE 10 MG TAB PO SCH (08:47)
[2018-02-11] MEDS: PANTOPRAZOLE SODIUM 40 MG TAB PO SCH (08:48)
--- NOTE | 2018-02-11 10:46 | SOAPPROG ---
SOAP Progress Note Assessment/Plan: Assessment: Elevated LFt better, still with elevated bili but suspect this is from "lag" and will improve Abd pain now resolved Plan: Trial of PO If does well OK to discharge home Recheck LFT in 2 weeks 02/11/18 10:43 Subjective: CC abd pain Pain has resolved. Patient is hungry and would like to go home Objective: Vital Signs Temp Pulse Resp BP Pulse Ox 36.9 C 83 16 157/95 H 94 02/11/18 07:53 02/11/18 07:53 02/11/18 07:53 02/11/18 08:47 02/11/18 07:53 Laboratory Results 02/11/18 05:18 02/11/18 05:18 02/10/18 02/11/18 02/12/18 05:59 05:59 05:59 Intake Total 980 1800 700 Output Total 1 Balance 979 1800 700 PT 12.8 SEC (12.0-15.0) 02/07/18 12:40 INR 0.94 (0.83-1.16) 02/07/18 12:40 Physical Exam - Physical Exam General Appearance: no apparent distress Respiratory: normal breath sounds Cardiac/Chest: regular rate, rhythm Abdomen: non-tender, soft ICD10 Worksheet Patient Problems: Problems Problem Status Onset Elevated lipase Acute Transaminitis Acute Vomiting and diarrhea Acute Abdominal pain Acute Dehydration Acute Elevated troponin Acute Epigastric pain Acute Hyponatremia Acute Vomiting Acute
[2018-02-11 11:05] VITALS: BP 144/91
--- NOTE | 2018-02-11 13:14 | PDDCSUM ---
Discharge Summary Discharge Summary: Date of Admission: 02/07/2018 Date of Discharge: 02/11/2018 Consultants: gastroenterology, IR Procedures/Studies: 1. Abdominal US 2. EGD w/EUS 3. ERCP 4. ERCP with IR rendezvous Discharge Diagnoses: 1. Recurrent acute abdominal pain/vomiting/diarrhea and 2. Abnormal LFTs, secondary to 3. Biliary stricture now w/p sphincterotomy, complicated by 4. Acute ERCP-induced pancreatitis 5. Hypertension 6. Macrocytosis Brief Hospital Course: 62yo F with HTN, recurrent bouts of abdominal pain, vomiting and diarrhea here with the same. These bouts started about a year ago. Had cholecystectomy at . CT from a month ago showed mild biliary ductal dilation but LFTs ok then. On admission here she was found to have a transaminitis with CBD dilation on US. An EGD w/EUS was initially performed which showed a dilated CBD to 12mm and a distal CBD stricture. ERCP was attempted but initially unable to access biliary system due to large diverticulum at ampulla. IR was then consulted and were able to access the biliary system vis percutaneous right hepatic lobe so that a rendezvous endoscopy could be performed. Repeat ERCP after IR intervention was successful and a sphincterotomy was performed at the stricture and sludge was removed from CBD. The patient did develop post-ERCP pancreatitis with rather marked LFT derangements. Her abdominal pain and LFTs were improving at discharge. She was tolerating PO. Medications: Please refer to EMR for complete list. I sent prescriptions for the following to her pharmacy: 1. Lisinopril 20mg QD (increased from 10mg) 2. Oxycodone 5mg PRN #12, 0 refills Follow Up Plan: 1. Follow up with GI in 2 weeks with LFTs 2. Titrate anti-hypertensives as needed 3. Work up macrocytosis Physical Exam: Vitals reviewed, afebrile. Alert and oriented, thin, RRR without m/r/g, lungs clear, abdominal pain much improved, no rashes or edema.
--- NOTE | 2018-02-11 13:22 | ASMTLACE ---
CESILIAE Length of stay for Answers: 2 days current admission Comorbidities - select Answers: Other Notes: HTN all that apply # of Emergency department Answers: 3-4 visits in the last 6 months Score: 6 Date Signed: 02/11/2018 01:21 PM Electronically Signed By:Ida Hernandez RN
--- NOTE | 2018-02-11 13:24 | ASMTCMCOM ---
CM Note CM Note Notes: Patient medicaly cleared to dc to home. S/P GI workup. No needs at present . Date Signed: 02/11/2018 01:23 PM Electronically Signed By:Ida Hernandez RN
== END 2018-02-11 14:18 | disposition home or self-care (01) | DRG 444 ==
LOC: F1N 15:59 → OBSVTOIN 02-08 13:40
PROVIDERS: ADMIT Student in an Organized Health Care Education/Training Program; ATTEND Student in an Organized Health Care Education/Training Program
DX: K83.1 Obstruction of bile duct (principal); K91.89 Other postprocedural complications and disorders of digestive system; K85.90 Acute pancreatitis without necrosis or infection, unspecified; K57.10 Diverticulosis of small intestine without perforation or abscess without bleeding; R74.0 Nonspecific elevation of levels of transaminase and lactic acid dehydrogenase [LDH]; I10 Essential (primary) hypertension; D75.89 Other specified diseases of blood and blood-forming organs
CPT/HCPCS: 82607-90; 83010-90; 96374; C1769; G0378; G0472; J0690; J1100; J1170; J1610; J2001; J2250; J2270; J2310; J2405; J2550; J2704; J3010; J3480; Q9961; Q9967

== ENCOUNTER 2018-03-08 19:29 | Observation (INO) | payer OTHER ==
[2018-03-08] MEDS ORDERED: LORazepam 2 MG/ML INJ IVP ONE ×2 (20:06→21:35)
[2018-03-08 20:23] LABS: PLATELET COUNT 203 10^3/uL (150-400)
[2018-03-08] MEDS ORDERED: NS 1,000 ML IV ONE (20:30)
--- NOTE | 2018-03-08 22:26 | EDPHY ---
H & P Stated Complaint: vomting, high BP, and burning in stomach Time Seen by Provider: 03/08/18 20:05 HPI/ROS: CHIEF COMPLAINT: Recurrent vomiting, abdominal pain HISTORY OF PRESENT ILLNESS: The patient has a complicated past medical history with multiple hospitalizations secondary to chronic abdominal pain. The patient REVIEW OF SYSTEMS: A comprehensive 10 point review of systems is otherwise negative aside from elements mentioned in the history of present illness. Source: Patient - Personal History Current Tetanus/Diphtheria Vaccine: Yes Current Tetanus Diphtheria and Acellular Pertussis (TDAP): Yes - Medical/Surgical History Hx Asthma: No Hx Chronic Respiratory Disease: No Hx Diabetes: No Hx Cardiac Disease: No Hx Renal Disease: No Hx Cirrhosis: No Hx Alcoholism: No Hx HIV/AIDS: No Hx Splenectomy or Spleen Trauma: No Other PMH: Hypertension, cholecystectomy, vertigo, shingles - Social History Smoking Status: Never smoked Constitutional: Initial Vital Signs Temperature (C) 36.3 C 03/08/18 19:30 Heart Rate 103 H 03/08/18 19:30 Respiratory Rate 18 03/08/18 19:30 Blood Pressure 191/137 H 03/08/18 19:30 O2 Sat (%) 98 03/08/18 19:30 O2 Delivery Mode Room Air O2 (L/minute) 3 Allergies/Adverse Reactions: No Known Allergies Allergy (Verified 03/08/18 19:34) Home Medications: Medication Instructions Recorded Pantoprazole Sodium [Protonix 40mg 40 mg PO DAILY #30 tab 10/01/17 (*)] Escitalopram Oxalate [Lexapro] 5 mg PO DAILY 02/08/18 Lisinopril [Zestril 40 mg (*)] 40 mg PO DAILY 03/08/18 Medical Decision Making - Diagnostics Imaging Results: Imaging Impressions Head CT 03/08/18 20:06 Impression: No acute intracranial findings. If symptoms persist and clinical suspicion warrants, consider MRI. Findings discussed with Rhonda Patricia, answering for Watson Booker 03/08/2018 at 20:35. - Data Points Laboratory Results: Laboratory Results 03/08/18 20:15 03/08/18 20:15 03/08/18 03/08/18 03/08/18 20:16 20:15 20:15 WBC RBC Hgb POC Hgb 17.0 gm/dL H gm/dL (12.6-16.3) Hct POC Hct 50 % H % (38-47) MCV MCH MCHC RDW Plt Count MPV Neut % (Auto) Lymph % (Auto) [place] % (Auto) Eos % (Auto) Baso % (Auto) Nucleat RBC Rel Count Absolute Neuts (auto) Absolute Lymphs (auto) Absolute Monos (auto) Absolute Eos (auto) Absolute Basos (auto) Absolute Nucleated RBC Immature Gran % Immature Gran # Platelet Estimate Polychromasia Oval Macrocytes Smear Review By POC Sodium 141 mEq/L mEq/L (135-145) Sodium 138 mEq/L mEq/L (135-145) POC Potassium 3.4 mEq/L mEq/L (3.3-5.0) Potassium 3.8 mEq/L mEq/L (3.5-5.2) POC Chloride 104 mEq/L mEq/L (97-110) Chloride 101 mEq/L mEq/L (97-110) Carbon Dioxide 12 mEq/l L mEq/l (22-31) Anion Gap 25 mEq/L H mEq/L (6-14) POC BUN 14 mg/dL mg/dL (7-23) BUN 15 mg/dL mg/dL (7-23) Creatinine 0.7 mg/dL mg/dL (0.6-1.0) POC Creatinine 0.5 mg/dL L mg/dL (0.6-1.0) Estimated GFR > 60 Glucose 226 mg/dL H mg/dL (70-100) POC Glucose 224 mg/dL H mg/dL (70-100) Calcium 10.0 mg/dL mg/dL (8.5-10.4) Total Bilirubin 1.7 mg/dL H mg/dL (0.1-1.4) Conjugated Bilirubin 0.6 mg/dL H mg/dL (0.0-0.5) Unconjugated Bilirubin 1.1 mg/dL mg/dL (0.0-1.1) AST 80 IU/L H IU/L (14-46) ALT 44 IU/L IU/L (9-52) Alkaline Phosphatase 59 IU/L IU/L (38-126) Total Protein 6.6 g/dL g/dL (6.3-8.2) Albumin 3.9 g/dL g/dL (3.5-5.0) Specimen Hemolysis 111 01/07/19 20:15 WBC 14.43 10^3/uL H 10^3/uL (3.80-9.50) RBC 3.86 10^6/uL L 10^6/uL (4.18-5.33) Hgb 14.9 g/dL g/dL (12.6-16.3) POC Hgb Hct 45.0 % % (38.0-47.0) POC Hct MCV 116.6 fL H fL (81.5-99.8) MCH 38.6 pg H pg (27.9-34.1) MCHC 33.1 g/dL g/dL (32.4-36.7) RDW 14.1 % % (11.5-15.2) Plt Count 203 10^3/uL 10^3/uL (150-400) MPV 9.4 fL fL (8.7-11.7) Neut % (Auto) 86.7 % H % (39.3-74.2) Lymph % (Auto) 8.2 % L % (15.0-45.0) [place] % (Auto) 3.7 % L % (4.5-13.0) Eos % (Auto) 0.0 % L % (0.6-7.6) Baso % (Auto) 0.2 % L % (0.3-1.7) Nucleat RBC Rel Count 0.0 % % (0.0-0.2) Absolute Neuts (auto) 12.50 10^3/uL H 10^3/uL (1.70-6.50) Absolute Lymphs (auto) 1.19 10^3/uL 10^3/uL (1.00-3.00) Absolute Monos (auto) 0.53 10^3/uL 10^3/uL (0.30-0.80) Absolute Eos (auto) 0.00 10^3/uL L 10^3/uL (0.03-0.40) Absolute Basos (auto) 0.03 10^3/uL 10^3/uL (0.02-0.10) Absolute Nucleated RBC 0.00 10^3/uL 10^3/uL (0-0.01) Immature Gran % 1.2 % H % (0.0-1.1) Immature Gran # 0.18 10^3/uL H 10^3/uL (0.00-0.10) Platelet Estimate ADEQUATE (ADEQ) Polychromasia 1+ H Oval Macrocytes 2+ H Smear Review By Pending POC Sodium Sodium POC Potassium Potassium POC Chloride Chloride Carbon Dioxide Anion Gap POC BUN BUN Creatinine POC Creatinine Estimated GFR Glucose POC Glucose Calcium Total Bilirubin Conjugated Bilirubin Unconjugated Bilirubin AST ALT Alkaline Phosphatase Total Protein Albumin Specimen Hemolysis Medications Given: Discontinued Medications Sodium Chloride (Ns) 1,000 mls @ 0 mls/hr IV EDNOW ONE; Wide Open PRN Reason: Protocol Stop: 03/08/18 20:31 Last Admin: 03/08/18 20:35 Dose: 1,000 mls Lorazepam (Ativan Injection) 1 mg IVP EDNOW ONE Stop: 03/08/18 20:07 Last Admin: 03/08/18 20:11 Dose: 1 mg Lorazepam (Ativan Injection) 1 mg IVP EDNOW ONE Stop: 03/08/18 21:36 Last Admin: 03/08/18 21:39 Dose: 1 mg Point of Care Test Results: Chemistry 03/08/18 20:16 POC Sodium 141 mEq/L mEq/L (135-145) POC Potassium 3.4 mEq/L mEq/L (3.3-5.0) POC Chloride 104 mEq/L mEq/L (97-110) POC BUN 14 mg/dL mg/dL (7-23) POC Creatinine 0.5 mg/dL L mg/dL (0.6-1.0) POC Glucose 224 mg/dL H mg/dL (70-100) ISTAT H&H 03/08/18 20:16 POC Hgb 17.0 gm/dL H gm/dL (12.6-16.3) POC Hct 50 % H % (38-47) Departure - Departure Condition: Good Referrals: Juan Emanuel MD [Primary Care Provider] - As per Instructions
--- NOTE | 2018-03-08 22:33 | EDPHY ---
H & P Stated Complaint: vomting, high BP, and burning in stomach Time Seen by Provider: 03/08/18 20:05 HPI/ROS: CHIEF COMPLAINT: Recurrent severe abdominal pain, vomiting, new onset seizure HISTORY OF PRESENT ILLNESS: Patient has a complicated past medical history and has been hospitalized several times over the past few months for abdominal pain. 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 She did develop post ERCP pancreatitis. The patient has been home for several weeks. Over the past several days she has developed severe recurrent abdominal pain and vomiting. The patient presented to the emergency department and was noted to have a generalized tonic-clonic seizure while in triage. She was brought back to the resuscitation room immediately. REVIEW OF SYSTEMS: A comprehensive 10 point review of systems is unobtainable secondary to the patient's postictal state Source: Patient, Family - Personal History Current Tetanus/Diphtheria Vaccine: Yes Current Tetanus Diphtheria and Acellular Pertussis (TDAP): Yes - Medical/Surgical History Hx Asthma: No Hx Chronic Respiratory Disease: No Hx Diabetes: No Hx Cardiac Disease: No Hx Renal Disease: No Hx Cirrhosis: No Hx Alcoholism: No Hx HIV/AIDS: No Hx Splenectomy or Spleen Trauma: No Other PMH: Hypertension, cholecystectomy, vertigo, shingles - Social History Smoking Status: Never smoked - Physical Exam Exam: General Appearance: Thin female, cachectic Eyes: Pupils equal and round no pallor or injection ENT, Mouth: Moist mucous membranes, poor dentition Respiratory: There are no retractions, lungs are clear to auscultation Cardiovascular: Regular rate and rhythm Gastrointestinal: Epigastric tenderness to palpation Neurological: Postictal, no focal motor deficit Skin: Warm and dry, no rashes Musculoskeletal: Neck is supple nontender Extremities: symmetrical, full range of motion Psychiatric: Patient is oriented X 3, there is no agitation Constitutional: Initial Vital Signs Temperature (C) 36.3 C 03/08/18 19:30 Heart Rate 103 H 03/08/18 19:30 Respiratory Rate 18 03/08/18 19:30 Blood Pressure 191/137 H 03/08/18 19:30 O2 Sat (%) 98 03/08/18 19:30 O2 Delivery Mode Room Air O2 (L/minute) 3 Allergies/Adverse Reactions: No Known Allergies Allergy (Verified 03/08/18 19:34) Home Medications: Medication Instructions Recorded Pantoprazole Sodium [Protonix 40mg 40 mg PO DAILY #30 tab 10/01/17 (*)] Escitalopram Oxalate [Lexapro] 5 mg PO DAILY 02/08/18 Lisinopril [Zestril 40 mg (*)] 40 mg PO DAILY 03/08/18 Medical Decision Making - Diagnostics Imaging Results: Imaging Impressions Head CT 03/08/18 20:06 Impression: No acute intracranial findings. If symptoms persist and clinical suspicion warrants, consider MRI. Findings discussed with Rhonda Patricia, answering for Watson Booker 03/08/2018 at 20:35. ED Course/Re-evaluation: Patient presents and was noted to have a general tonic-clonic seizure in triage. She was brought back to the resuscitation room where she received a mg of Ativan. The patient was quite confused and postictal. She was taken for a stat CT scan of the head which demonstrated no evidence of intracranial hemorrhage or acute abnormality. The patient was placed on a youth nutritional monitor. She had close neurologic examination is over a 0.5 hr period with improvement of her postictal state. She continued to be tachycardic and hypertensive. Patient was treated with additional 1 mg dose of Ativan. The patient reportedly is on some sort of medication to "help her relax." She is also taking Protonix and Prilosec. Regarding the patient's abdominal pain and vomiting there are no significant derangements noted of her liver function test. Her lipase is still pending. The patient denies any history of significant alcohol intake. The patient was monitored in the emergency department. The etiology of her seizure is somewhat uncertain. The cause of her recurrent abdominal pain is also uncertain. I do feel that she needs to be admitted to the hospital for further evaluation and management. I did review her past medical records including the results of her endoscopy and interventional radiology procedure. Consultation was made with Dr. New from the hospitalist service who will admit the patient this evening. Differential Diagnosis: Differential diagnosis considered includes seizure, intracranial hemorrhage, hypertensive emergency, recurrent pancreatitis, hepatitis - Data Points Laboratory Results: Laboratory Results 03/08/18 20:15 03/08/18 20:15 03/08/18 03/08/18 03/08/18 20:16 20:15 20:15 WBC RBC Hgb POC Hgb 17.0 gm/dL H gm/dL (12.6-16.3) Hct POC Hct 50 % H % (38-47) MCV MCH MCHC RDW Plt Count MPV Neut % (Auto) Lymph % (Auto) [place] % (Auto) Eos % (Auto) Baso % (Auto) Nucleat RBC Rel Count Absolute Neuts (auto) Absolute Lymphs (auto) Absolute Monos (auto) Absolute Eos (auto) Absolute Basos (auto) Absolute Nucleated RBC Immature Gran % Immature Gran # Platelet Estimate Polychromasia Oval Macrocytes Smear Review By POC Sodium 141 mEq/L mEq/L (135-145) Sodium 138 mEq/L mEq/L (135-145) POC Potassium 3.4 mEq/L mEq/L (3.3-5.0) Potassium 3.8 mEq/L mEq/L (3.5-5.2) POC Chloride 104 mEq/L mEq/L (97-110) Chloride 101 mEq/L mEq/L (97-110) Carbon Dioxide 12 mEq/l L mEq/l (22-31) Anion Gap 25 mEq/L H mEq/L (6-14) POC BUN 14 mg/dL mg/dL (7-23) BUN 15 mg/dL mg/dL (7-23) Creatinine 0.7 mg/dL mg/dL (0.6-1.0) POC Creatinine 0.5 mg/dL L mg/dL (0.6-1.0) Estimated GFR > 60 Glucose 226 mg/dL H mg/dL (70-100) POC Glucose 224 mg/dL H mg/dL (70-100) Calcium 10.0 mg/dL mg/dL (8.5-10.4) Total Bilirubin 1.7 mg/dL H mg/dL (0.1-1.4) Conjugated Bilirubin 0.6 mg/dL H mg/dL (0.0-0.5) Unconjugated Bilirubin 1.1 mg/dL mg/dL (0.0-1.1) AST 80 IU/L H IU/L (14-46) ALT 44 IU/L IU/L (9-52) Alkaline Phosphatase 59 IU/L IU/L (38-126) Total Protein 6.6 g/dL g/dL (6.3-8.2) Albumin 3.9 g/dL g/dL (3.5-5.0) Specimen Hemolysis 111 03/08/18 20:15 WBC 14.43 10^3/uL H 10^3/uL (3.80-9.50) RBC 3.86 10^6/uL L 10^6/uL (4.18-5.33) Hgb 14.9 g/dL g/dL (12.6-16.3) POC Hgb Hct 45.0 % % (38.0-47.0) POC Hct MCV 116.6 fL H fL (81.5-99.8) MCH 38.6 pg H pg (27.9-34.1) MCHC 33.1 g/dL g/dL (32.4-36.7) RDW 14.1 % % (11.5-15.2) Plt Count 203 10^3/uL 10^3/uL (150-400) MPV 9.4 fL fL (8.7-11.7) Neut % (Auto) 86.7 % H % (39.3-74.2) Lymph % (Auto) 8.2 % L % (15.0-45.0) [place] % (Auto) 3.7 % L % (4.5-13.0) Eos % (Auto) 0.0 % L % (0.6-7.6) Baso % (Auto) 0.2 % L % (0.3-1.7) Nucleat RBC Rel Count 0.0 % % (0.0-0.2) Absolute Neuts (auto) 12.50 10^3/uL H 10^3/uL (1.70-6.50) Absolute Lymphs (auto) 1.19 10^3/uL 10^3/uL (1.00-3.00) Absolute Monos (auto) 0.53 10^3/uL 10^3/uL (0.30-0.80) Absolute Eos (auto) 0.00 10^3/uL L 10^3/uL (0.03-0.40) Absolute Basos (auto) 0.03 10^3/uL 10^3/uL (0.02-0.10) Absolute Nucleated RBC 0.00 10^3/uL 10^3/uL (0-0.01) Immature Gran % 1.2 % H % (0.0-1.1) Immature Gran # 0.18 10^3/uL H 10^3/uL (0.00-0.10) Platelet Estimate ADEQUATE (ADEQ) Polychromasia 1+ H Oval Macrocytes 2+ H Smear Review By Pending POC Sodium Sodium POC Potassium Potassium POC Chloride Chloride Carbon Dioxide Anion Gap POC BUN BUN Creatinine POC Creatinine Estimated GFR Glucose POC Glucose Calcium Total Bilirubin Conjugated Bilirubin Unconjugated Bilirubin AST ALT Alkaline Phosphatase Total Protein Albumin Specimen Hemolysis Medications Given: Discontinued Medications Sodium Chloride (Ns) 1,000 mls @ 0 mls/hr IV EDNOW ONE; Wide Open PRN Reason: Protocol Stop: 03/08/18 20:31 Last Admin: 03/08/18 20:35 Dose: 1,000 mls Lorazepam (Ativan Injection) 1 mg IVP EDNOW ONE Stop: 03/08/18 20:07 Last Admin: 03/08/18 20:11 Dose: 1 mg Lorazepam (Ativan Injection) 1 mg IVP EDNOW ONE Stop: 03/08/18 21:36 Last Admin: 03/08/18 21:39 Dose: 1 mg Point of Care Test Results: Chemistry 03/08/18 20:16 POC Sodium 141 mEq/L mEq/L (135-145) POC Potassium 3.4 mEq/L mEq/L (3.3-5.0) POC Chloride 104 mEq/L mEq/L (97-110) POC BUN 14 mg/dL mg/dL (7-23) POC Creatinine 0.5 mg/dL L mg/dL (0.6-1.0) POC Glucose 224 mg/dL H mg/dL (70-100) ISTAT H&H 03/08/18 20:16 POC Hgb 17.0 gm/dL H gm/dL (12.6-16.3) POC Hct 50 % H % (38-47) Departure - Departure Disposition: [facility] In[facility] Acute Clinical Impression: New onset seizure, Epigastric pain, Vomiting Condition: Good Referrals: Juan Emanuel MD [Primary Care Provider] - As per Instructions
[2018-03-08] MEDS ORDERED: ONDANSETRON 4 MG/2 ML VIAL IVP PRN (23:07)
[2018-03-08] MEDS ORDERED: ACETAMINOPHEN 325 MG TAB PO PRN (23:07)
[2018-03-08] MEDS ORDERED: PROMETHAZINE HCL 25 MG/ML INJ IVP PRN (23:07)
[2018-03-08] MEDS ORDERED: ONDANSETRON DISINTEGRATING 4 MG TAB PO PRN (23:07)
[2018-03-08] MEDS ORDERED: NS W/ 20 KCl/L 1,000 ML IV SCH (23:15)
[2018-03-09] MEDS ORDERED: NS 500 ML IV ONE (00:06)
--- NOTE | 2018-03-09 01:19 | PDGENHP ---
History and Physical - Chief Complaint Vomiting, seizure - History of Present Illness 62 yo F w/ hx of HTN and several admissions for abdominal pain now s/p biliary sphincterotomy presents with vomiting and new seizure. The patient was discharged home on 02/11/18 after undergoing biliary sphincterotomy for treatment of biliary stricture. She did well at home after discharge until yesterday when she developed vomiting and diarrhea. She has had several admission for the same over the last fe months. She also noticed chills, runny nose, and elevated blood pressure. Part of the elevated BP may be due to the fact that she likely threw up her daily lisinopril. Upon arrival in the ED she was noted to have a generalized tonic clonic seizure in triage. She has no personal or family history of seizures. In the ED she recovered from the seizure quickly after lorazepam. She is alert and oriented during my evaluation but a bit drowsy. She denies complaints aside from fatigue. CTH was unremarkable. She is being admitted for observation and neurology consultation. Of note, her tells me she has been under a great deal of stress lately due to an upcoming trial regarding a lawsuit. Case discussed with ED physician Dr. Booker; records reviewed and summarized above. History Information - Allergies/Home Medication List Allergies/Adverse Reactions: No Known Allergies Allergy (Verified 03/08/18 19:34) Home Medications: Escitalopram Oxalate [Lexapro] 5 mg PO DAILY 02/08/18 [Last Taken Unknown] Lisinopril [Zestril 40 mg (*)] 40 mg PO DAILY 03/08/18 [Last Taken Unknown] I have personally reviewed and updated: family history, medical history - Past Medical History hypertension - Surgical History Additional surgical history: . Biliary sphincterotomy - Family History Positive for: CAD Additional family history: Denies family hx of seizures - Social History Smoking Status: Never smoked Review of Systems Review of Systems: ROS: 10pt was reviewed & negative except for what was stated in HPI & below Physical Exam Physical Exam: Temp Pulse Resp BP Pulse Ox 36.6 C 119 H 18 174/108 H 100 03/09/18 00:33 03/09/18 00:33 03/09/18 00:33 03/09/18 00:33 03/09/18 00:33 O2 (L/minute) 4 Constitutional: appears nourished, uncomfortable Eyes: PERRL, EOMI Ears, Nose, Mouth, Throat: moist mucous membranes, no oral mucosal ulcers Cardiovascular: regular rate and rhythym, no murmur, rub, or gallop Respiratory: no respiratory distress, no rales or rhonchi Gastrointestinal: normoactive bowel sounds, soft, non-tender abdomen Skin: warm, normal color Musculoskeletal: full muscle strength, no muscle tenderness Neurologic: AAOx3, CN II-XII Intact Psychiatric: interacting appropriately, not anxious Lab Data & Imaging Review 03/08/18 20:15 03/08/18 20:15 WBC 14.43 10^3/uL (3.80-9.50) H 03/08/18 20:15 RBC 3.86 10^6/uL (4.18-5.33) L 03/08/18 20:15 Hgb 14.9 g/dL (12.6-16.3) 03/08/18 20:15 POC Hgb 17.0 gm/dL (12.6-16.3) H 03/08/18 20:16 Hct 45.0 % (38.0-47.0) 03/08/18 20:15 POC Hct 50 % (38-47) H 03/08/18 20:16 MCV 116.6 fL (81.5-99.8) H 03/08/18 20:15 MCH 38.6 pg (27.9-34.1) H 03/08/18 20:15 MCHC 33.1 g/dL (32.4-36.7) 03/08/18 20:15 RDW 14.1 % (11.5-15.2) 03/08/18 20:15 Plt Count 203 10^3/uL (150-400) 03/08/18 20:15 MPV 9.4 fL (8.7-11.7) 03/08/18 20:15 Neut % (Auto) 86.7 % (39.3-74.2) H 03/08/18 20:15 Lymph % (Auto) 8.2 % (15.0-45.0) L 03/08/18 20:15 [place] % (Auto) 3.7 % (4.5-13.0) L 03/08/18 20:15 Eos % (Auto) 0.0 % (0.6-7.6) L 03/08/18 20:15 Baso % (Auto) 0.2 % (0.3-1.7) L 03/08/18 20:15 Nucleat RBC Rel Count 0.0 % (0.0-0.2) 03/08/18 20:15 Absolute Neuts (auto) 12.50 10^3/uL (1.70-6.50) H 03/08/18 20:15 Absolute Lymphs (auto) 1.19 10^3/uL (1.00-3.00) 03/08/18 20:15 Absolute Monos (auto) 0.53 10^3/uL (0.30-0.80) 03/08/18 20:15 Absolute Eos (auto) 0.00 10^3/uL (0.03-0.40) L 03/08/18 20:15 Absolute Basos (auto) 0.03 10^3/uL (0.02-0.10) 03/08/18 20:15 Absolute Nucleated RBC 0.00 10^3/uL (0-0.01) 03/08/18 20:15 Immature Gran % 1.2 % (0.0-1.1) H 03/08/18 20:15 Immature Gran # 0.18 10^3/uL (0.00-0.10) H 03/08/18 20:15 Platelet Estimate ADEQUATE (ADEQ) 03/08/18 20:15 Polychromasia 1+ H 03/08/18 20:15 Oval Macrocytes 2+ H 03/08/18 20:15 POC Sodium 141 mEq/L (135-145) 03/08/18 20:16 Sodium 138 mEq/L (135-145) 03/08/18 20:15 POC Potassium 3.4 mEq/L (3.3-5.0) 03/08/18 20:16 Potassium 3.8 mEq/L (3.5-5.2) 03/08/18 20:15 POC Chloride 104 mEq/L (97-110) 03/08/18 20:16 Chloride 101 mEq/L (97-110) 03/08/18 20:15 Carbon Dioxide 12 mEq/l (22-31) L 03/08/18 20:15 Anion Gap 25 mEq/L (6-14) H 03/08/18 20:15 POC BUN 14 mg/dL (7-23) 03/08/18 20:16 BUN 15 mg/dL (7-23) 03/08/18 20:15 Creatinine 0.7 mg/dL (0.6-1.0) 03/08/18 20:15 POC Creatinine 0.5 mg/dL (0.6-1.0) L 03/08/18 20:16 Estimated GFR > 60 03/08/18 20:15 Glucose 226 mg/dL (70-100) H 03/08/18 20:15 POC Glucose 224 mg/dL (70-100) H 03/08/18 20:16 Calcium 10.0 mg/dL (8.5-10.4) 03/08/18 20:15 Total Bilirubin 1.7 mg/dL (0.1-1.4) H 03/08/18 20:15 Conjugated Bilirubin 0.6 mg/dL (0.0-0.5) H 03/08/18 20:15 Unconjugated Bilirubin 1.1 mg/dL (0.0-1.1) 03/08/18 20:15 AST 80 IU/L (14-46) H 03/08/18 20:15 ALT 44 IU/L (9-52) 03/08/18 20:15 Alkaline Phosphatase 59 IU/L (38-126) 03/08/18 20:15 Total Protein 6.6 g/dL (6.3-8.2) 03/08/18 20:15 Albumin 3.9 g/dL (3.5-5.0) 03/08/18 20:15 Lipase 365 IU/L (23-300) H 03/08/18 20:15 Procalcitonin 0.21 ng/mL (0.02-0.10) H 03/08/18 20:15 Specimen Hemolysis 111 03/08/18 20:15 Imaging Review: Imaging Impressions Head CT 03/08/18 20:06 Impression: No acute intracranial findings. If symptoms persist and clinical suspicion warrants, consider MRI. Findings discussed with Rhonda Patricia, answering for Watson Booker 03/08/2018 at 20:35. Assessment & Plan Assessment: 62 yo F w/ hx of HTN and biliary stricture s/p sphincterotomy presents with vomiting and new seizure. Plan: 1. Seizure - Generalized tonic clonic seizure occurred in the ED triage area. This is a new diagnosis for this patient with no prior personal or family history of seizures. CTH (personally reviewed/interpreted) does not reveal acute findings. She denies neck pain/stiffness to suggest meningitis and none of her home medications are known for causing seizures. - Admit for observation - Will Keppra load if recurs - Seizure precautions - Neurology consult placed 2. Vomiting, diarrhea - Associated with URI symptoms as well. This could be viral in etiology but she has been admitted on several prior occasions for similar symptoms. Most recently in January she was treated for biliary stricture with a sphincterotomy. She subsequently developed post-ERC pancreatitis as well. Her AST and lipase are milldly elevated but much less than on prior presentations. - Will check GI PCR - Monitor CMP - RUQ U/S if pain of LFTs worsening 3. Hyperglycemia - Possibly stress response from seizure; she has no history of DM. - Will check A1c 4. HTN - continue home lisinopril. 5. GERD - Continue PPI Diet - Clears, ADAT, mIVF w/ K Code - Full Ppx - SCDs Dispo - Admit under observation status
[2018-03-09 04:33] LABS: PLATELET COUNT 151 10^3/uL (150-400)
[2018-03-09] MEDS: ESCITALOPRAM OXALATE 10 MG TAB PO SCH (08:46)
[2018-03-09] MEDS: PANTOPRAZOLE SODIUM 40 MG TAB PO SCH (08:46)
[2018-03-09] MEDS: LISINOPRIL 40 MG TAB PO SCH (08:47)
--- NOTE | 2018-03-09 11:34 | GCON ---
NEUROLOGY CONSULT REFERRING PHYSICIAN: Vijay Wilson MD CHIEF COMPLAINT: First seizure. HISTORY OF PRESENT ILLNESS: The patient is a very pleasant 62-year-old lady with a history of hypertension and recurrent abdominal pain, status post biliary sphincterotomy. She came back to the emergency department yesterday for very high blood pressures and recurrent nausea and vomiting. She had systolics of the 190s initially. She may have had elevated blood pressure from vomiting her lisinopril, not entirely clear. She then had a generalized tonic- clonic seizure yesterday while in triage in the emergency department. She had a stat head CT, which was negative, and admitted for observation. She has had no recurrent seizures. She is also under a great deal of stress. REVIEW OF SYSTEMS: Ten-point review of systems was done, only pertinent to the HPI. Specifically, there were no provocative factors found to implicate a provoked seizure in terms of prescription or nonprescription medicines. She denies heavy alcohol use. She states she had 2 mimosas Thursday evening, but does not drink typically more than that. She denies alcoholism. For past medical history, social history, family history, home medications, allergies, see Dr. Wilson's H and P. PHYSICAL EXAM: VITAL SIGNS: Blood pressure now is 170s systolic, temperature 36.6, respirations 16. GENERAL: She is awake and alert, no acute distress. NEUROLOGIC: Cranial nerve exam 2 through 7 and 12 are normal. Motor exam is normal to strength and tone throughout. Sensory exam normal to light touch. Coordination is normal. IMPRESSION/PLAN: 1. First seizure It is not entirely clear what the etiology is for this first generalized tonic- clonic seizure. Certainly it may have been provoked from a combination of factors, including nausea, vomiting, hypertension, and other physiologic stressors at this time. We discussed at length. She will be on [address] of [address] restrictions and seizure precautions. She is agreeable. We will obtain an MRI of brain without contrast while in the hospital today to ensure there are no epileptogenic abnormalities, such as masses, tumors, or previous cortical infarcts. If there are no significant abnormalities on MRI of brain, she can discharge home with the restrictions as outlined above. She will then have an outpatient extended EEG and follow up with me for further recommendations. We discussed that anticonvulsant medication is optional, and she is not interested in starting that at this time. This is reasonable based on practice parameters. If there are any abnormalities on MRI brain, please contact the neurology service for discussion and further recommendations. Otherwise, we will plan on seeing her as an outpatient after her EEG, which we will arrange. Thank you for the consultation. Fifty total minutes floor time reviewing previous inpatient records, current inpatient records, over 50% in direct counseling and coordination of care. /[id number]/MODL MTDD
--- NOTE | 2018-03-09 12:54 | ASMTCMCOM ---
CM Note CM Note Notes: Patient plan of care reviewed in multidisciplinary rounds. 62 year old female admitted via ED with nausea and vomiting then proceeded to have a seizure, Seen per neurologist MRI of brain ordered. Likely able to discharge to home after that if imaging is ok. No current needs identified, CM available should needs arise. Plan: Likely to dc home with family. Driving restrictions for 9o days and in office f/u with neurology. Date Signed: 03/09/2018 12:53 PM Electronically Signed By:Ida Hernandez RN
[2018-03-09] MEDS: amLODIPine BESYLATE 5 MG TAB PO SCH (16:53)
[2018-03-09] MEDS ORDERED: MAGNESIUM OXIDE 400 MG TAB PO SCH (18:15)
[2018-03-09] MEDS ORDERED: MAGNESIUM SULF 2 GM/WATER 50 ML IV ONE (18:28)
[2018-03-09] MEDS ORDERED: METOPROLOL TARTRATE 5 MG/5 ML INJ IVP PRN (18:31)
[2018-03-09] MEDS ORDERED: hydrALAZINE 20 MG/ML VIAL IVP PRN (18:35)
--- NOTE | 2018-03-09 18:38 | HOSPPROG ---
Hospitalist Progress Note Assessment/Plan: The patient is a 62-year-old female with PMH hypertension, stress who was admitted for seizure she had in the ED waiting room after she had N/V/D. ASSESSMENT/PLAN: Accelerated HTN Dizziness w/ standing -added amlodipine. -prn metoprolol IV. Seizure, likely 2/2 electrolyte disturbance -Discussed w/ Dr. Batista. MRI brain unremarkable. -FU w/ Neuro in 4-6 weeks, call their office to get EEG first. No driving x 90 days. Hypomagnesemia -added magnesium on to earlier lab draw, which came back low. -replace magnesium. Acute gastroenteritis -resolving. -Received IVF, rehydrated. Acute dehydration, resolved Stress -continue escitalopram. VTE prophylaxis: ambulatory. Code Status: full code Status: Inpatient for > 2 midnight stay. For uncontrolled high blood pressure and hypomagnesemia Disposition: Med surg with discharge anticipated tomorrow. ____ SUBJECTIVE: Today pt feels better, no seizures. +dizzy when standing. No ZAMBRANO. OBJECTIVE: Physical Exam: General: The patient is a female who is alert and in no acute distress. HEENT: normocephalic, extraocular movements intact, conjunctivae clear. Mucous membranes moist. Neck: trachea midline, no visible masses. Resp: unlabored. Abd: soft and nondistended. Musculoskeletal: Normal muscle tone/bulk. Seen ambulating comfortably. Neuro: cranial nerves II - XII intact. Intact gross motor and sensory function. Psych: Appropriate mood and appropriate affect. Skin: No pallor. No petechiae. Heme/lymph: No peripheral edema at bilateral lower extremities. Labs/Imaging/Other Tests: Personally reviewed/interpreted. Brain MRI - nonspecific WMD R parietal subcortical area. Objective: Vital Signs Temp Pulse Resp BP Pulse Ox 36.8 C 82 16 163/107 H 95 03/09/18 16:00 03/09/18 16:00 03/09/18 16:00 03/09/18 16:00 03/09/18 16:00 Microbiology 03/09/18 03:50 Respiratory Panel (PCR) - Final Nasal, Sinus - Swab No Organism Detected By Pcr Laboratory Results 03/09/18 03:40 03/09/18 03:40 03/08/18 03/09/18 03/10/18 05:59 05:59 05:59 Intake Total 1925 Balance 1925 - Time Spent With Patient Time Spent with Patient: greater than 35 minutes Time Spent with Patient: Greater than 35 minutes spent on this patients care, greater than 50% of time spent counseling, educating, and coordinating care regarding the above mentioned plan. ICD10 Worksheet Patient Problems: Problems Problem Status Onset Epigastric pain Acute New onset seizure Acute Vomiting Acute Abdominal pain Acute Dehydration Acute Elevated lipase Acute Elevated troponin Acute Hyponatremia Acute Transaminitis Acute Vomiting and diarrhea Acute
[2018-03-09] MEDS ORDERED: IBUPROFEN 600 MG TAB PO PRN (21:24)
[2018-03-10] MEDS: LISINOPRIL 40 MG TAB PO SCH (07:59)
[2018-03-10] MEDS: PANTOPRAZOLE SODIUM 40 MG TAB PO SCH (07:59)
[2018-03-10] MEDS: amLODIPine BESYLATE 5 MG TAB PO SCH (08:00)
[2018-03-10] MEDS: ESCITALOPRAM OXALATE 10 MG TAB PO SCH (08:00)
[2018-03-10] MEDS ORDERED: MAGNESIUM OXIDE 400 MG TAB PO SCH (09:00)
--- NOTE | 2018-03-10 12:42 | ASMTLACE ---
SU[facility] Length of stay for Answers: 2 days current admission Comorbidities - select Answers: Other Notes: HTN all that apply # of Emergency department Answers: 3-4 visits in the last 6 months Score: 6 Date Signed: 03/10/2018 12:41 PM Electronically Signed By:Ida Hernandez RN
--- NOTE | 2018-03-10 12:49 | PDDCSUM ---
Discharge Summary Discharge Summary: The patient is a 62-year-old female with PMH hypertension, stress who was admitted for seizure she had in the ED waiting room after she had N/V/D. MRI was unremarkable. She has not been started on ongoing medications. She was evaluated by Dr. Batista who has cleared her for d/c with the plan for op EEG and then f/u in 4 weeks with him. She did have HTN and Amlodipine was added to her regimen. Please see below for details per problem list. F/U: with PCP next week. With Neurology in 4 weeks DDX: Seizure, unclear etiology -Discussed w/ Dr. Batista. MRI brain unremarkable. -FU w/ Neuro in 4-6 weeks, call their office to get EEG first. No driving x 90 days. Seizure precautions. No swimming in pools. HTN Hypomagnesemia Acute gastroenteritis -resolved -Received IVF, rehydrated. Acute dehydration, resolved Physical Exam: General: The patient is a female who is alert and in no acute distress. HEENT: normocephalic, extraocular movements intact, conjunctivae clear. Mucous membranes moist. Neck: trachea midline, no visible masses. Resp: unlabored. Abd: soft and nondistended. Musculoskeletal: Normal muscle tone/bulk. Seen ambulating comfortably. Neuro: cranial nerves II - XII intact. Intact gross motor and sensory function. Psych: Appropriate mood and appropriate affect. Skin: No pallor. No petechiae. Heme/lymph: No peripheral edema at bilateral lower extremities. Labs/Imaging/Other Tests: Personally reviewed/interpreted. Brain MRI - nonspecific WMD R parietal subcortical area. Meds: see med rec F/U: per above total time spent on d/c is 35 mins
[2018-03-10 12:51] VITALS: BP 152/83
== END 2018-03-10 14:45 | disposition home or self-care (01) ==
LOC: INTOOBSV 22:35 → F1N 03-09 00:10
PROVIDERS: ADMIT Student in an Organized Health Care Education/Training Program; ATTEND Family Medicine
DX: R56.9 Unspecified convulsions (principal); R10.13 Epigastric pain; R11.10 Vomiting, unspecified; I10 Essential (primary) hypertension; I27.20 Pulmonary hypertension, unspecified; R73.9 Hyperglycemia, unspecified; E83.42 Hypomagnesemia; E86.0 Dehydration; K52.9 Noninfective gastroenteritis and colitis, unspecified
CPT/HCPCS: 82435-PO; 82565-PO; 82947-PO; 84132-PO; 84295-PO; 84520-PO; 85014-ER; 96374; G0378; J0360; J2060; J3475

== ENCOUNTER → 2018-05-28 | Outpatient (CLI) | payer OTHER | LOC: FCPNEURO 13:51 ==